=== PATIENT | male | born 1955 | race Hispanic/Latino ===

== ENCOUNTER 2019-05-30 20:43 | Inpatient (IN) | payer MEDICARE ==
[~2019-05-30] VITALS: Ht 162.6 cm; Wt 44.9 kg
[~2019-05-30 20:43] MED LIST: CIPR-278 PO; HYDR-4060 PO; HYDR5TAB8 PO; MIDO10TA PO; PANT40TA25 PO; TACR1CAP10 PO; ZOLP10TA6 PO
[2019-05-30] MEDS ORDERED: ACETAMINOPHEN EXTRA STRENGTH 500 MG TABLET ONE (21:20)
[2019-05-30] MEDS ORDERED: MEROPENEM 1 GM VIAL ONE (21:20)
[2019-05-30] MEDS ORDERED: SODIUM CHLORIDE 0.9% 1000ML 1,000 ML IV ONE (21:21)
[2019-05-30] MEDS ORDERED: ONDANSETRON HCL 4 MG/2 ML VIAL ONE (21:27)
[2019-05-30 21:31] LABS: BASOPHILS % (AUTO) 0.2 % (0.0-5.0); EOSINOPHILS % (AUTO) 0.1 % (0.0-8.0); HEMATOCRIT 45.6 % (42-54); MEAN CORPUSCULAR HEMOGLOBIN 28.5 pg (27.0-33.0); MEAN CORPUSCULAR HGB CONC 32.5 g/dL (32.0-36.0); MEAN CORPUSCULAR VOLUME 87.9 fL (79-99); MONOCYTES % (AUTO) 3.6 % (3.0-13.0); NEUTROPHILS % (AUTO) 87.6 % (40.0-77.0); PLATELET COUNT (AUTO) 261 K/uL (130-400); RED BLOOD CELL COUNT(AUTO) 5.19 MIL/uL (4.50-6.20); WHITE BLOOD COUNT (AUTO) 13.3 K/uL (4.8-10.8)
[2019-05-30 21:44] LABS: CARBON DIOXIDE 22 mmol/L (21-32); CHLORIDE 103 mmol/L (101-111); CREATININE 1.6 mg/dL (0.5-1.5); GLOMERULAR FILTR. RATE CALC 47 mL/min (>60); GLUCOSE,RANDOM 103 mg/dL (70-105); SODIUM SERUM 141 mmol/L (136-145); UREA NITROGEN, BLOOD 37 mg/dL (7-18)
[2019-05-30 21:47] LABS: INR 1.08 (0.85-1.15); PARTIAL THROMBOPLASTIN TIME 30.2 SEC (26.3-35.5); PROTHROMBIN TIME 11.3 SEC (9.6-11.6)
[2019-05-30 22:11] LABS: ALANINE AMINOTRANSFERASE 19 U/L (12-78); ALBUMIN 3.1 g/dL (3.5-5.0); ASPARTATE AMINOTRANSFERASE 17 U/L (10-37); BILIRUBIN,TOTAL 3.3 mg/dL (0.2-1.0); CREATINE KINASE, TOTAL 36 U/L (21-232); MYOGLOBIN 1115 ng/mL (10-92); TOTAL PROTEIN, SERUM 7.1 g/dL (6.0-8.3); TROPONIN I < 0.04 ng/mL (0.00-0.06)
[2019-05-30] MEDS ORDERED: MORPHINE SULFATE 4 MG/1ML SYG ONE (22:38)
[2019-05-30] MEDS ORDERED: SODIUM CHLORIDE 0.9% 500ML 500 ML IV ONE (22:48)
[2019-05-30] MEDS ORDERED: SODIUM CHLORIDE 0.9% 1000ML 1,000 ML IV SCH (22:58)
[2019-05-30 23:06] LABS: APPEARANCE,URINE TURBID (CLEAR); BILIRUBIN,URINE LARGE (NEGATIVE); COLOR,URINE YELLOW (YELLOW); GLUCOSE, URINE (UA) NEGATIVE (NEGATIVE); KETONES,URINE 5 mg/dL (NEGATIVE); LEUKOCYTE ESTERASE ,URINE LARGE (NEGATIVE); NITRATE,URINE POSITIVE (NEGATIVE); OCCULT BLOOD,URINE LARGE (NEGATIVE); PROTEIN,URINE >=300 mg/dL (NEGATIVE)
[2019-05-30 23:09] LABS: BACTERIA,URINE Many /HPF (None Seen); SQUAMOUS EPITHELIAL CELL,UR Rare /HPF (0-2); WBC,URINE 51-100 /HPF (0-1)
[2019-05-30 23:10] LABS: AMORPHOUS SEDIMENT,UR Few /LPF (None Seen)
[2019-05-31] VITALS (45 sets, daily range): BP systolic 75–156; BP diastolic 46–104
[2019-05-31] MEDS: HYDROMORPHONE 1 MG/1 ML AMP IVP PRN (01:48)
[2019-05-31 03:57] LABS: BASOPHILS % (AUTO) 0.3 % (0.0-5.0); EOSINOPHILS % (AUTO) 0.2 % (0.0-8.0); HEMATOCRIT 41.8 % (42-54); LYMPHOCYTES % (AUTO) 7.4 % (21.0-51.0); MEAN CORPUSCULAR HGB CONC 32.3 g/dL (32.0-36.0); MEAN CORPUSCULAR VOLUME 89.9 fL (79-99); MONOCYTES % (AUTO) 4.9 % (3.0-13.0); NEUTROPHILS % (AUTO) 86.8 % (40.0-77.0); PLATELET COUNT (AUTO) 183 K/uL (130-400); RED BLOOD CELL COUNT(AUTO) 4.65 MIL/uL (4.50-6.20); WHITE BLOOD COUNT (AUTO) 13.6 K/uL (4.8-10.8)
[2019-05-31] MEDS ORDERED: SODIUM CHLORIDE 0.9% 500ML 500 ML IV SCH (04:00)
[2019-05-31 04:50] LABS: CARBON DIOXIDE 22 mmol/L (21-32); CHLORIDE 106 mmol/L (101-111); CREATININE 1.8 mg/dL (0.5-1.5); GLOMERULAR FILTR. RATE CALC 41 mL/min (>60); GLUCOSE,RANDOM 86 mg/dL (70-105); POTASSIUM 4.1 mmol/L (3.5-5.1); SODIUM SERUM 143 mmol/L (136-145); UREA NITROGEN, BLOOD 40 mg/dL (7-18)
[2019-05-31 04:51] LABS: LIPASE < 50 U/L (114-286)
[2019-05-31] MEDS ORDERED: PANTOPRAZOLE SODIUM 80 MG in SODIUM CHLORIDE 0.9% 100 ML IV SCH (05:00)
--- NOTE | 2019-05-31 05:13 | NUR ---
Update on patient Spoke to AJ regarding bladder scanner at 12mL, 20cc output from suprapubic cath since arrival to floor, stated to flush cath and consult urologist in the morning. Continue NS @100. Will continue to monitor patient
[2019-05-31] MEDS: ONDANSETRON HCL 4 MG/2 ML VIAL IVP PRN (05:55)
[2019-05-31] MEDS ORDERED: OXYB5TAB15 PO (06:43)
[2019-05-31] MEDS: LACTULOSE 20 GM/30 ML UDCUP PO SCH ×2 (07:31→21:45)
[2019-05-31] MEDS: LUBIPROSTONE 24 MCG CAP PO SCH ×2 (08:00→16:11)
[2019-05-31] MEDS ORDERED: FAMOTIDINE 20MG TAB 20 MG TAB PO SCH (09:00)
[2019-05-31] MEDS: MEROPENEM 500 MG VIAL IV SCH ×3 (09:34→16:11)
[2019-05-31] MEDS: LACTATED RINGERS 1000ML IV SCH ×2 (10:13→13:11)
--- NOTE | 2019-05-31 10:18 | NUR ---
RESTING IN BED WITH EYES CLOSED, RESP.'S EVEN AND UNLABORED. O2 AT 2L/NC. O2 SAT. SPOT CHECK 100%. CALL LIGHT WITHIN REACH. FAMILY MEMBERS AT BEDSIDE.
[2019-05-31] MEDS: BISACODYL 10 MG SUPP.RECT RC SCH (10:22)
[2019-05-31] MEDS: PANTOPRAZOLE SODIUM 80 MG in SODIUM CHLORIDE 0.9% 100 ML IV NR ×2 (11:00→14:24)
[2019-05-31] MEDS: LACTATED RINGERS 1000ML 1,000 ML IV SCH ×2 (11:26→19:42)
--- NOTE | 2019-05-31 11:30 | NUR ---
INITIAL SW met with patient's spouse and son. Patient lives with spouse, Octavia Huggins. Emergency contact is son, Adam Huggins Jr, [phone]. Patient has [facility] X 2 visits a week. JAMIE/[facility] signed and placed in chart. PHC is with [facility] X 40 hours a week. DME: hospital bed, shower chair, wheelchair, nebulizer. Patient needs help with ADL's and does not drive. Family and provider assist patient daily. PCP is Dr. Cezar Huerta. Pharmacy is [facility] in [place]. DCP is home. SW spoke with family regarding considering placement but family stated they would rather take patient home with existing services. Addendum: 05/31/19 at 1135 by MARRY SAHA SS Amended: Links added.
--- NOTE | 2019-05-31 12:34 | NUR ---
NOTIFIED DR. SCHRADER RE:LACTIC ACID RESULT. ORDERS RECEIVED.
--- NOTE | 2019-05-31 12:53 | NUR ---
NOTIFIED DR. GUEVARA RE:LACTIC ACID RESULT. ORDERS RECEIVED.
[2019-05-31] MEDS ORDERED: LACTATED RINGERS 1000ML IV SCH ×2 (13:00→18:15)
--- NOTE | 2019-05-31 13:55 | NUR ---
PT. RESTING IN BED WITH EYES CLOSED. RESPONDS TO LIGHT MOVING. LETHARGIC. Addendum: 05/31/19 at 1715 by DANIEL QUAN RN RN NOTIFIED DR. GUEVARA, ORDERS RECEIVED.
[2019-05-31 13:58] LABS: POTASSIUM 4.9 mmol/L (3.5-5.1)
[2019-05-31 14:03] LABS: ALBUMIN 2.2 g/dL (3.5-5.0); BILIRUBIN,TOTAL 2.7 mg/dL (0.2-1.0); TOTAL PROTEIN, SERUM 5.4 g/dL (6.0-8.3)
[2019-05-31] MEDS: NOREPINEPHRINE 4MG/NS 250ML 250 ML IV SCH ×2 (14:10→23:17)
--- NOTE | 2019-05-31 14:17 | NUR ---
TRANSFERRED TO ROOM 217 VIA BED WITH LEVOPHED IN PLACE AT 0.1MCG/KG/MIN VIA IV PUMP. IV SITE W/O EDEMA OR ERYTHEMA NOTED. PT. IN [place] POSITION.
[2019-05-31] MEDS ORDERED: METHYLPREDNISOLONE SOD SUCC 125MG/2ML VIAL ONE (14:21)
[2019-05-31] MEDS ORDERED: DEXTROSE 50%-WATER 50 ML DISP.SYRIN IV ONE (14:22)
[2019-05-31] MEDS ORDERED: MIDAZOLAM HCL 1 MG/ML 2ML VIAL ONE (14:33)
[2019-05-31] MEDS ORDERED: FENTANYL CITRATE PF 50 MCG/1 ML 2ML VIAL ONE (14:34)
--- NOTE | 2019-05-31 15:53 | NUR ---
RECEIVED CALL FROM DR. ERWIN'S OFFICE, SPOKE WITH DENEEN, OFFICE STAFF MEMBER. ALL LABS, V.S. , CURRENT MEDICATIONS (INCLUDING LEVOPHED) REGIMEN, PT.'S HISTORY, PT.'S ABD X-RAY AND ABD CT SCAN REPORT IMPRESSIONS READ AND INFORMED OF MANUAL DISIMPACTION PERFORMED IN A.M. DENEEN STATES, "WE'LL CALL BACK WITH HER RECOMMENDATIONS."
[2019-05-31] MEDS: HYDROCORTISONE SOD SUCCINATE 100 MG/2 ML VIAL IV SCH ×2 (15:56→21:44)
[2019-05-31] MEDS ORDERED: FENTANYL CITRATE PF 50 MCG/1 ML 2ML VIAL IVP ONE (16:00)
[2019-05-31] MEDS ORDERED: GLUCAGON 1MG KIT 1 MG ML IM PRN (16:00)
[2019-05-31] MEDS ORDERED: MIDAZOLAM HCL 1 MG/ML 2ML VIAL IVP ONE (16:00)
[2019-05-31 17:26] LABS: BASOPHILS % (AUTO) 0.6 % (0.0-5.0); EOSINOPHILS % (AUTO) 0.6 % (0.0-8.0); HEMATOCRIT 42.9 % (42-54); LYMPHOCYTES % (AUTO) 1.9 % (21.0-51.0); MEAN CORPUSCULAR HGB CONC 31.5 g/dL (32.0-36.0); MEAN CORPUSCULAR VOLUME 92.1 fL (79-99); MONOCYTES % (AUTO) 10.9 % (3.0-13.0); NEUTROPHILS % (AUTO) 85.3 % (40.0-77.0); PLATELET COUNT (AUTO) 154 K/uL (130-400); RED BLOOD CELL COUNT(AUTO) 4.66 MIL/uL (4.50-6.20); RED CELL DISTRIBUTION WIDTH 18.7 % (11.0-15.5); WHITE BLOOD COUNT (AUTO) 12.4 K/uL (4.8-10.8)
[2019-05-31] MEDS ORDERED: PHARMACY COMMUNICATION MISC SCH (17:30)
[2019-05-31 18:17] LABS: MAGNESIUM 1.5 mg/dL (1.80-2.40); PHOSPHORUS 5.1 mg/dL (2.5-4.9)
[2019-05-31 18:32] LABS: BAND NEUTROPHILS % (MANUAL) 39 % (0-2); LYMPHOCYTES % (MANUAL) 5 % (22-44); MAN.DIFF COMMENT-IMPRESSION MANUAL DIFFERENTIAL; METAMYELOCYTES % 8 % (0-0); MONOCYTES % (MANUAL) 1 % (2-9); PLATELET MORPHOLOGY COMMENT ADEQUATE; SEGMENTED NEUTROPHILS % 47 % (40-70)
[2019-05-31] MEDS: DEXTROSE 50%-WATER 50 ML DISP.SYRIN IV PRN (20:12)
[2019-05-31] MEDS ORDERED: ALBUMIN (HUMAN) 25% 100 ML IV ONE (21:09)
[2019-05-31] MEDS: ALBUMIN (HUMAN) 25% 50 ML IV SCH (21:45)
[2019-06-01] VITALS (55 sets, daily range): BP systolic 72–143; BP diastolic 42–86
[2019-06-01] MEDS: MEROPENEM 500 MG VIAL IV SCH ×4 (00:25→23:43)
[2019-06-01] MEDS: DEXTROSE 50%-WATER 50 ML DISP.SYRIN IV PRN (00:25)
[2019-06-01] MEDS: LACTATED RINGERS 1000ML 1,000 ML IV SCH (01:09)
[2019-06-01] MEDS: HYDROCORTISONE SOD SUCCINATE 100 MG/2 ML VIAL IV SCH ×4 (01:09→20:41)
[2019-06-01] MEDS: PANTOPRAZOLE SODIUM 80 MG in SODIUM CHLORIDE 0.9% 100 ML IV NR (01:10)
[2019-06-01] MEDS: HYDROMORPHONE 1 MG/1 ML AMP IVP PRN ×2 (01:10→23:44)
[2019-06-01 03:37] LABS: BASOPHILS % (AUTO) 0.3 % (0.0-5.0); EOSINOPHILS % (AUTO) 0.7 % (0.0-8.0); HEMATOCRIT 33.9 % (42-54); LYMPHOCYTES % (AUTO) 1.1 % (21.0-51.0); MEAN CORPUSCULAR HEMOGLOBIN 28.6 pg (27.0-33.0); MEAN CORPUSCULAR HGB CONC 32.4 g/dL (32.0-36.0); MEAN CORPUSCULAR VOLUME 88.3 fL (79-99); MONOCYTES % (AUTO) 3.3 % (3.0-13.0); NEUTROPHILS % (AUTO) 92.9 % (40.0-77.0); PLATELET COUNT (AUTO) 174 K/uL (130-400); RED BLOOD CELL COUNT(AUTO) 3.84 MIL/uL (4.50-6.20); RED CELL DISTRIBUTION WIDTH 18.4 % (11.0-15.5); WHITE BLOOD COUNT (AUTO) 18.7 K/uL (4.8-10.8)
[2019-06-01 03:55] LABS: CREATININE 1.9 mg/dL (0.5-1.5); MAGNESIUM 1.4 mg/dL (1.80-2.40); PHOSPHORUS 4.5 mg/dL (2.5-4.9); POTASSIUM 3.5 mmol/L (3.5-5.1)
[2019-06-01] MEDS: MAGNESIUM 2GM PREMIX 50ML 50 ML IV SCH (07:30)
[2019-06-01] MEDS: BISACODYL 10 MG SUPP.RECT RC SCH (08:45)
[2019-06-01] MEDS: LACTULOSE 20 GM/30 ML UDCUP PO SCH ×2 (08:46→20:41)
[2019-06-01] MEDS: PANTOPRAZOLE 40 MG/VIAL IVP SCH ×2 (09:17→20:41)
[2019-06-01] MEDS: LUBIPROSTONE 24 MCG CAP PO SCH ×2 (09:17→17:00)
[2019-06-01] MEDS: ALBUMIN (HUMAN) 25% 50 ML IV SCH ×2 (09:17→20:40)
[2019-06-01] MEDS: ONDANSETRON HCL 4 MG/2 ML VIAL IVP PRN ×2 (09:26→20:41)
[2019-06-01 13:46] LABS: CREATININE 1.7 mg/dL (0.5-1.5)
[2019-06-01] MEDS ORDERED: LIDOCAINE HCL-MPF 1% 2ML VIAL IV PRN (14:00)
[2019-06-01] MEDS: POTASSIUM CHLORIDE 20MEQ/100ML 100 ML IV PRN ×2 (14:32→15:32)
--- NOTE | 2019-06-01 15:03 | NUR ---
1453 gave patient's son BPCI Letter, notified him that JUDY Franks Coordinator will be following up with patient within the next 90 days.
--- NOTE | 2019-06-01 15:55 | NUR ---
[facility] CONSULT PATIENT ASSESSED REQUESTED: PER FLOOR NURSE, NO OPEN WOUNDS OR SKIN BREAKDOWN PRESENT. NO [facility] RECOMMENDATIONS REQUIRED AT THIS TIME. Addendum: 06/03/19 at 1028 by JOSE PATEL LVN Amended: Links added.
[2019-06-01] MEDS: DEXTROSE 5%-LACTATED RINGERS 1,000 ML IV SCH (18:03)
[2019-06-02] VITALS (30 sets, daily range): BP systolic 97–136; BP diastolic 63–88
[2019-06-02] MEDS: HYDROCORTISONE SOD SUCCINATE 100 MG/2 ML VIAL IV SCH ×4 (02:21→21:12)
[2019-06-02 04:25] LABS: BASOPHILS % (AUTO) 0.2 % (0.0-5.0); EOSINOPHILS % (AUTO) 0.5 % (0.0-8.0); HEMATOCRIT 30.1 % (42-54); LYMPHOCYTES % (AUTO) 1.6 % (21.0-51.0); MEAN CORPUSCULAR HEMOGLOBIN 28.8 pg (27.0-33.0); MEAN CORPUSCULAR HGB CONC 32.9 g/dL (32.0-36.0); MEAN CORPUSCULAR VOLUME 87.5 fL (79-99); MONOCYTES % (AUTO) 3.5 % (3.0-13.0); NEUTROPHILS % (AUTO) 90.8 % (40.0-77.0); PLATELET COUNT (AUTO) 119 K/uL (130-400); RED BLOOD CELL COUNT(AUTO) 3.44 MIL/uL (4.50-6.20); RED CELL DISTRIBUTION WIDTH 18.2 % (11.0-15.5); WHITE BLOOD COUNT (AUTO) 12.8 K/uL (4.8-10.8)
[2019-06-02 04:43] LABS: ALBUMIN 2.5 g/dL (3.5-5.0); CREATININE 1.5 mg/dL (0.5-1.5); MAGNESIUM 2.3 mg/dL (1.80-2.40); PHOSPHORUS 3.8 mg/dL (2.5-4.9)
[2019-06-02 05:01] LABS: POTASSIUM 2.9 mmol/L (3.5-5.1)
[2019-06-02] MEDS: POTASSIUM CHLORIDE 20MEQ/100ML 100 ML IV PRN ×2 (05:23→10:12)
[2019-06-02] MEDS: LUBIPROSTONE 24 MCG CAP PO SCH ×2 (08:00→14:49)
[2019-06-02] MEDS: PANTOPRAZOLE 40 MG/VIAL IVP SCH ×2 (08:29→21:12)
[2019-06-02] MEDS: DEXTROSE 5%-LACTATED RINGERS 1,000 ML IV SCH (08:29)
[2019-06-02] MEDS: MEROPENEM 500 MG VIAL IV SCH ×2 (08:29→16:38)
[2019-06-02] MEDS: BISACODYL 10 MG SUPP.RECT RC SCH (08:35)
[2019-06-02] MEDS: LACTULOSE 20 GM/30 ML UDCUP PO SCH (08:35)
--- NOTE | 2019-06-02 08:36 | NUR ---
Held Medications Patient has had multiple Large liquid BM's X3.
--- NOTE | 2019-06-02 10:00 | NUR ---
No GI intervention at this time. Colonoscopy done in 2018 showed internal Hemorrhoids. No intervention to be done at this time. -As per Dr. Gee
[2019-06-02] MEDS: ONDANSETRON HCL 4 MG/2 ML VIAL IVP PRN ×2 (11:33→21:12)
[2019-06-02 15:40] LABS: HEMATOCRIT 31.6 % (42-54)
[2019-06-02] MEDS ORDERED: PHARMACY COMMUNICATION MISC SCH (15:45)
[2019-06-02] MEDS ORDERED: ZINC OXIDE OINT 56.7 GM TP PRN (16:00)
[2019-06-02] MEDS: D5LR-20 MEQ KCL 1000 ML 1,000 ML IV SCH (21:11)
[2019-06-02] MEDS: HYDROMORPHONE 1 MG/1 ML AMP IVP PRN (21:13)
[2019-06-03] VITALS (14 sets, daily range): BP systolic 117–141; BP diastolic 77–97
[2019-06-03] MEDS: MEROPENEM 500 MG VIAL IV SCH ×3 (00:24→18:04)
[2019-06-03 04:44] LABS: BASOPHILS % (AUTO) 0.1 % (0.0-5.0); HEMATOCRIT 31.7 % (42-54); LYMPHOCYTES % (AUTO) 2.3 % (21.0-51.0); MEAN CORPUSCULAR HEMOGLOBIN 28.7 pg (27.0-33.0); MEAN CORPUSCULAR HGB CONC 33.1 g/dL (32.0-36.0); MEAN CORPUSCULAR VOLUME 86.6 fL (79-99); MONOCYTES % (AUTO) 2.4 % (3.0-13.0); NEUTROPHILS % (AUTO) 94.9 % (40.0-77.0); PLATELET COUNT (AUTO) 93 K/uL (130-400); RED BLOOD CELL COUNT(AUTO) 3.66 MIL/uL (4.50-6.20); WHITE BLOOD COUNT (AUTO) 14.6 K/uL (4.8-10.8)
[2019-06-03 04:53] LABS: CREATININE 1.2 mg/dL (0.5-1.5)
[2019-06-03 04:55] LABS: POTASSIUM 2.9 mmol/L (3.5-5.1)
[2019-06-03] MEDS: HYDROCORTISONE SOD SUCCINATE 100 MG/2 ML VIAL IV SCH ×3 (05:16→21:59)
[2019-06-03] MEDS: POTASSIUM CHLORIDE 20MEQ/100ML 100 ML IV PRN ×2 (05:16→09:13)
[2019-06-03] MEDS ORDERED: POTASSIUM CHLORIDE 10% ELIXIR 20 MEQ/15 ML UDCUP PO PRN (06:45)
[2019-06-03] MEDS: LUBIPROSTONE 24 MCG CAP PO SCH ×2 (08:00→17:00)
[2019-06-03] MEDS: MAGNESIUM 2GM PREMIX 50ML 50 ML IV SCH (09:27)
[2019-06-03] MEDS: ONDANSETRON HCL 4 MG/2 ML VIAL IVP PRN (10:33)
--- NOTE | 2019-06-03 11:56 | NUR ---
AFTER KCL IV PROTOCOL---RE CHECKED POTASSIUM LEVEL 3.8
--- NOTE | 2019-06-03 14:10 | NUR ---
CALLED DR. FARRAR'S OFFICE ([phone]) AND SPOKE WITH DENEEN...REQUESTED THAT DR. FARRAR CALL ME BACK IN REFERENCE TO ORDER WRITTEN TO CHANGE OUT SUPRA PUBIC CATHETER.
[2019-06-03] MEDS: D5LR-20 MEQ KCL 1000 ML 1,000 ML IV SCH (15:24)
--- NOTE | 2019-06-03 16:15 | NUR ---
SUPRAPUBIC CATHETER CHANGED BY ALVIN GOODMAN @BEDSIDE.
--- NOTE | 2019-06-03 23:06 | NUR ---
Assumed care at 1900. Patient in stable condition and in no apparent distress. No complaints of pain. VS WNL. Patient has been transferred at this time to Rm 224. Report given to Latosha ESQUIVEL.
[2019-06-04] VITALS (7 sets, daily range): BP systolic 118–135; BP diastolic 81–90
[2019-06-04] MEDS: MEROPENEM 500 MG VIAL IV SCH ×3 (02:01→15:00)
[2019-06-04 04:19] LABS: BASOPHILS % (AUTO) 0.1 % (0.0-5.0); HEMATOCRIT 34.7 % (42-54); LYMPHOCYTES % (AUTO) 4.6 % (21.0-51.0); MEAN CORPUSCULAR HEMOGLOBIN 28.7 pg (27.0-33.0); MEAN CORPUSCULAR HGB CONC 33.7 g/dL (32.0-36.0); MEAN CORPUSCULAR VOLUME 85.3 fL (79-99); MONOCYTES % (AUTO) 3.9 % (3.0-13.0); PLATELET COUNT (AUTO) 63 K/uL (130-400); RED BLOOD CELL COUNT(AUTO) 4.07 MIL/uL (4.50-6.20); RED CELL DISTRIBUTION WIDTH 17.5 % (11.0-15.5); WHITE BLOOD COUNT (AUTO) 11.2 K/uL (4.8-10.8)
[2019-06-04 04:21] LABS: CREATININE 1.1 mg/dL (0.5-1.5); MAGNESIUM 1.7 mg/dL (1.80-2.40); PHOSPHORUS 2.1 mg/dL (2.5-4.9); POTASSIUM 3.1 mmol/L (3.5-5.1)
[2019-06-04] MEDS: MAGNESIUM 2GM PREMIX 50ML 50 ML IV SCH (06:44)
[2019-06-04] MEDS: HYDROCORTISONE SOD SUCCINATE 100 MG/2 ML VIAL IV SCH ×3 (06:44→21:24)
[2019-06-04] MEDS: D5LR-20 MEQ KCL 1000 ML 1,000 ML IV SCH ×2 (08:01→17:58)
[2019-06-04] MEDS: TACROLIMUS 1 MG CAPSULE PO SCH ×3 (08:07→21:24)
[2019-06-04] MEDS: PANTOPRAZOLE 40 MG/VIAL IVP SCH (08:07)
[2019-06-04] MEDS: POTASSIUM CHLORIDE 10% ELIXIR 20 MEQ/15 ML UDCUP PO PRN (08:12)
[2019-06-04] MEDS: HYDROMORPHONE 1 MG/1 ML AMP IVP PRN (08:12)
--- NOTE | 2019-06-04 08:16 | NUR ---
DR. GUEVARA IN ROOM ASSESSING AND SPEAKING WITH PT. DR. GUEVARA EXPLAINED PLAN OF CARE TO PT. AND FAMILY MEMBERS AT BEDSIDE, VERBALIZED MUTUAL UNDERSTANDING.
[2019-06-04] MEDS ORDERED: POTASSIUM PHOS 15 mMOL+NS250ML 250 ML IV PRN (08:30)
[2019-06-04] MEDS: POTASSIUM CHLORIDE 20MEQ/100ML 100 ML IV PRN (10:51)
--- NOTE | 2019-06-04 13:45 | NUR ---
BM NOTED, CARE RENDERED AND REPOSITIONED. Addendum: 06/04/19 at 1846 by DANIEL QUAN RN RN "TOTAL CARE SPO(2)RT" AIR BED IN PLACE.
[2019-06-04 14:28] LABS: POTASSIUM 3.8 mmol/L (3.5-5.1)
--- NOTE | 2019-06-04 17:10 | NUR ---
BM NOTED, CARE RENDERED AND REPOSITIONED.
--- NOTE | 2019-06-04 19:12 | NUR ---
DR. Ruth PETTY IN ROOM ASSESSING/SPEAKING WITH PT.
[2019-06-04] MEDS: ONDANSETRON HCL 4 MG/2 ML VIAL IVP PRN (22:52)
--- NOTE | 2019-06-05 01:00 | NUR ---
IJ DRESSING CHANGE LEFT IJ CVL DRESSING CHANGE DONE AT THIS TIME USING STERILE TECHNIQUE. PT TOLERATED WELL.
[2019-06-05] MEDS: MEROPENEM 500 MG VIAL IV SCH ×3 (01:39→20:25)
[2019-06-05] MEDS ORDERED: ZOLPIDEM TARTRATE 5 MG TAB PO ONE (02:00)
[2019-06-05 04:33] VITALS: BP 125/83
[2019-06-05] MEDS: HYDROCORTISONE SOD SUCCINATE 100 MG/2 ML VIAL IV SCH ×3 (05:44→20:25)
[2019-06-05 08:05] VITALS: BP 135/78
[2019-06-05] MEDS: TACROLIMUS 1 MG CAPSULE PO SCH ×2 (09:00→20:27)
[2019-06-05] MEDS: PANTOPRAZOLE 40 MG/VIAL IVP SCH (09:00)
[2019-06-05] MEDS: D5LR-20 MEQ KCL 1000 ML 1,000 ML IV SCH (11:25)
[2019-06-05 11:42] VITALS: BP 139/93
[2019-06-05 16:31] VITALS: BP 135/95
--- NOTE | 2019-06-05 17:30 | NUR ---
LT I.J. CENTRAL LINE , EDUCATION GIVEN , INSTRUCTED PT TO TAKE A DEEP BREATH HOLD AND CENTRAL LINE, DISCHARGE ,WITH IMMEDICATED PRESSURE X 10 MIN DONE NOTED NO HEMATOMA OR REDNESS . NOTED NO SOB. A SM PRESSURE DRSG APPLICATION ON TOLERATE WELL , SL TO HIS RT FOREARM HURTING AND DC , SM PRESSURE DRSG APPLICATION ON . .
[2019-06-05] MEDS: ONDANSETRON HCL 4 MG/2 ML VIAL IVP PRN (20:25)
[2019-06-05] MEDS: HYDROMORPHONE 1 MG/1 ML AMP IVP PRN (20:27)
[2019-06-05 20:36] VITALS: BP 144/89
[2019-06-06] MEDS ORDERED: ZOLPIDEM TARTRATE 5 MG TAB PO ONE ×2 (00:15→22:30)
[2019-06-06] MEDS ORDERED: ZOLPIDEM TARTRATE 5 MG TAB ONE (00:41)
[2019-06-06 01:09] VITALS: BP 145/90
[2019-06-06 03:57] VITALS: BP 138/97
[2019-06-06] MEDS: HYDROCORTISONE SOD SUCCINATE 100 MG/2 ML VIAL IV SCH ×2 (07:09→18:04)
[2019-06-06] MEDS: D5LR-20 MEQ KCL 1000 ML 1,000 ML IV SCH (07:55)
[2019-06-06] MEDS: MEROPENEM 500 MG VIAL IV SCH ×2 (07:58)
[2019-06-06] MEDS: TACROLIMUS 1 MG CAPSULE PO SCH ×2 (07:58→23:50)
[2019-06-06] MEDS: PANTOPRAZOLE 40 MG/VIAL IVP SCH (07:59)
[2019-06-06 08:00] VITALS: BP 148/93
[2019-06-06 08:41] LABS: BASOPHILS % (AUTO) 0.1 % (0.0-5.0); EOSINOPHILS % (AUTO) 0.1 % (0.0-8.0); HEMATOCRIT 37.5 % (42-54); LYMPHOCYTES % (AUTO) 9.6 % (21.0-51.0); MEAN CORPUSCULAR HEMOGLOBIN 28.7 pg (27.0-33.0); MEAN CORPUSCULAR HGB CONC 33.9 g/dL (32.0-36.0); MEAN CORPUSCULAR VOLUME 84.7 fL (79-99); MONOCYTES % (AUTO) 7.8 % (3.0-13.0); NEUTROPHILS % (AUTO) 81.4 % (40.0-77.0); PLATELET COUNT (AUTO) 70 K/uL (130-400); RED BLOOD CELL COUNT(AUTO) 4.43 MIL/uL (4.50-6.20); RED CELL DISTRIBUTION WIDTH 16.2 % (11.0-15.5); WHITE BLOOD COUNT (AUTO) 7.9 K/uL (4.8-10.8)
[2019-06-06 08:51] LABS: CREATININE 0.9 mg/dL (0.5-1.5); MAGNESIUM 1.4 mg/dL (1.80-2.40)
[2019-06-06 09:01] LABS: POTASSIUM 2.7 mmol/L (3.5-5.1)
[2019-06-06] MEDS: POTASSIUM CHLORIDE 20MEQ/100ML 100 ML IV PRN (10:19)
[2019-06-06] MEDS: POTASSIUM CHLORIDE 20 MEQ ERTAB PO PRN ×2 (10:19→18:05)
[2019-06-06] MEDS: LIDOCAINE HCL-MPF 1% 2ML VIAL IV PRN (10:39)
--- NOTE | 2019-06-06 10:40 | NUR ---
DYSPHAGIA EVAL COMPLETED. -S/S OF ASPIRATION. RECOMMEND REGULAR TEXTURE, THIN LIQUIDS; PILLS CRUSHED IF LARGE. Addendum: 06/06/19 at 1355 by [place]O [place], [facility] Amended: Links added.
[2019-06-06 12:00] VITALS: BP 155/97
[2019-06-06 15:24] VITALS: BP 151/91
--- NOTE | 2019-06-06 15:46 | NUR ---
RD NOTIFICATION DIET: GI SOFT/BLAND. PO INTAKE <25% AND HAS POOR APPETITE X SEVERAL WEEKS, PER FAMILY. NO COMPLAINTS OF N/V/C/D AT THIS TIME. PT STATED HAVING NO DIFFICULTIES CHEWING OR SWALLOWING FOOD/ LIQUIDS AT THIS TIME. LABS REVIEWED. MEDS REVIEWED. SKIN IS INTACT, COCCYX HEALED ULCER NOTED. PT STATED HE LIKES FRESH FRUIT SUCH PEACHES, PEARS AND BANANAS. BMI IS 17; CLASSIFIED SEVERE UNDERWEIGHT. NO SIGNIFICANT WEIGHT CHANGES WERE NOTED. RD RECOMMENDS TO OFFER ENSURE WITH ALL MEALS OFFER FRESH FRUIT TO HIS LIKING ENCOURAGE ADEQUATE NUTRITION AND HYDRATION DAILY ASSISTED FEEDINGS NEEDED RD PENDING MALNUTRITION EDUCATION AT THIS TIME MONITOR PO INTAKE AND WEIGHT Addendum: 06/06/19 at [address] Amended: Links added.
[2019-06-06] MEDS: CEFTRIAXONE SODIUM 1 GM IV SCH (18:04)
[2019-06-06 19:54] VITALS: BP 134/93
[2019-06-06] MEDS: ACETAMINOPHEN 325 MG TAB PO PRN (23:51)
[2019-06-07] MEDS ORDERED: ZOLPIDEM TARTRATE 5 MG TAB ONE (00:17)
[2019-06-07] MEDS: POTASSIUM CHLORIDE 10% ELIXIR 20 MEQ/15 ML UDCUP PO PRN ×4 (00:20→18:38)
[2019-06-07 00:51] VITALS: BP 142/94
--- NOTE | 2019-06-07 02:44 | NUR ---
ASSUMED CARE Report from tiarra rn.
[2019-06-07] MEDS: D5LR-20 MEQ KCL 1000 ML 1,000 ML IV SCH (03:00)
--- NOTE | 2019-06-07 03:24 | NUR ---
BM Pt had a bowel movement,incontinent care rendered.
[2019-06-07] MEDS: MAGNESIUM 2GM PREMIX 50ML 50 ML IV SCH ×2 (03:34→07:29)
[2019-06-07 03:55] VITALS: BP 135/83
[2019-06-07 05:36] LABS: BASOPHILS % (AUTO) 0.1 % (0.0-5.0); EOSINOPHILS % (AUTO) 0.1 % (0.0-8.0); HEMATOCRIT 35.7 % (42-54); LYMPHOCYTES % (AUTO) 18.9 % (21.0-51.0); MEAN CORPUSCULAR HGB CONC 33.1 g/dL (32.0-36.0); MEAN CORPUSCULAR VOLUME 84.8 fL (79-99); MONOCYTES % (AUTO) 6.5 % (3.0-13.0); NEUTROPHILS % (AUTO) 72.2 % (40.0-77.0); PLATELET COUNT (AUTO) 46 K/uL (130-400); RED BLOOD CELL COUNT(AUTO) 4.21 MIL/uL (4.50-6.20); RED CELL DISTRIBUTION WIDTH 16.2 % (11.0-15.5); WHITE BLOOD COUNT (AUTO) 6.8 K/uL (4.8-10.8)
[2019-06-07 05:46] LABS: CREATININE 0.8 mg/dL (0.5-1.5); MAGNESIUM 1.2 mg/dL (1.80-2.40); POTASSIUM 3.3 mmol/L (3.5-5.1)
[2019-06-07] MEDS: ACETAMINOPHEN 325 MG TAB PO PRN ×2 (05:55→22:21)
[2019-06-07 08:00] VITALS: BP 133/81
[2019-06-07] MEDS: TACROLIMUS 1 MG CAPSULE PO SCH ×2 (08:42→20:39)
[2019-06-07] MEDS: HYDROCORTISONE 20 MG TABLET PO SCH ×2 (08:42→20:39)
[2019-06-07] MEDS: PANTOPRAZOLE 40 MG/VIAL IVP SCH (08:43)
[2019-06-07 12:00] VITALS: BP 123/75
[2019-06-07 16:00] VITALS: BP 128/77
[2019-06-07] MEDS: CEFTRIAXONE SODIUM 1 GM IV SCH (17:02)
[2019-06-07 21:23] VITALS: BP 134/84
[2019-06-08 00:49] VITALS: BP 138/78
[2019-06-08] MEDS: D5LR-20 MEQ KCL 1000 ML 1,000 ML IV SCH (01:30)
[2019-06-08] MEDS ORDERED: ZOLPIDEM TARTRATE 5 MG TAB PO ONE (02:00)
[2019-06-08] MEDS ORDERED: ZOLPIDEM TARTRATE 5 MG TAB ONE (02:19)
[2019-06-08 04:14] VITALS: BP 141/91
[2019-06-08 06:27] LABS: BASOPHILS % (AUTO) 0.3 % (0.0-5.0); EOSINOPHILS % (AUTO) 0.4 % (0.0-8.0); HEMATOCRIT 37.6 % (42-54); LYMPHOCYTES % (AUTO) 13.8 % (21.0-51.0); MEAN CORPUSCULAR HEMOGLOBIN 28.4 pg (27.0-33.0); MEAN CORPUSCULAR HGB CONC 31.9 g/dL (32.0-36.0); MEAN CORPUSCULAR VOLUME 89.1 fL (79-99); MONOCYTES % (AUTO) 3.7 % (3.0-13.0); NEUTROPHILS % (AUTO) 80.5 % (40.0-77.0); PLATELET COUNT (AUTO) 95 K/uL (130-400); RED BLOOD CELL COUNT(AUTO) 4.22 MIL/uL (4.50-6.20); RED CELL DISTRIBUTION WIDTH 16.7 % (11.0-15.5); WHITE BLOOD COUNT (AUTO) 7.8 K/uL (4.8-10.8)
[2019-06-08 06:29] LABS: CREATININE 0.7 mg/dL (0.5-1.5); MAGNESIUM 1.8 mg/dL (1.80-2.40); POTASSIUM 3.7 mmol/L (3.5-5.1)
[2019-06-08 08:00] VITALS: BP 135/85
[2019-06-08] MEDS: TACROLIMUS 1 MG CAPSULE PO SCH ×2 (10:39→21:17)
[2019-06-08] MEDS: PANTOPRAZOLE 40 MG/VIAL IVP SCH (10:40)
[2019-06-08] MEDS: HYDROCORTISONE 20 MG TABLET PO SCH ×2 (10:40→21:17)
[2019-06-08] MEDS: POTASSIUM CHLORIDE 20 MEQ ERTAB PO PRN (10:41)
[2019-06-08 12:00] VITALS: BP 151/87
[2019-06-08 16:00] VITALS: BP 136/80
[2019-06-08] MEDS: CEFTRIAXONE SODIUM 1 GM IV SCH (17:06)
[2019-06-08] MEDS: ACETAMINOPHEN 325 MG TAB PO PRN (17:09)
[2019-06-08] MEDS ORDERED: HEPARIN SODIUM 5000UNIT/ML 1ML VIAL SQ SCH (18:30)
[2019-06-08 20:00] VITALS: BP 134/84
[2019-06-08] MEDS: HYDROMORPHONE 1 MG/1 ML AMP IVP PRN (21:17)
[2019-06-08] MEDS ORDERED: BISACODYL 5 MG TABLET.DR PO PRN (22:45)
[2019-06-09] VITALS (7 sets, daily range): BP systolic 134–151; BP diastolic 81–96
[2019-06-09 05:14] LABS: BASOPHILS % (AUTO) 0.1 % (0.0-5.0); HEMATOCRIT 34.1 % (42-54); MEAN CORPUSCULAR HEMOGLOBIN 28.4 pg (27.0-33.0); MEAN CORPUSCULAR HGB CONC 32.8 g/dL (32.0-36.0); MEAN CORPUSCULAR VOLUME 86.3 fL (79-99); MONOCYTES % (AUTO) 2.9 % (3.0-13.0); PLATELET COUNT (AUTO) 140 K/uL (130-400); RED BLOOD CELL COUNT(AUTO) 3.95 MIL/uL (4.50-6.20); RED CELL DISTRIBUTION WIDTH 16.3 % (11.0-15.5); WHITE BLOOD COUNT (AUTO) 10.5 K/uL (4.8-10.8)
[2019-06-09 05:28] LABS: CREATININE 0.6 mg/dL (0.5-1.5); MAGNESIUM 1.4 mg/dL (1.80-2.40); POTASSIUM 3.3 mmol/L (3.5-5.1)
[2019-06-09] MEDS ORDERED: POTASSIUM CHLORIDE 20 MEQ ERTAB PO ONE (06:15)
[2019-06-09] MEDS: MAGNESIUM 2GM PREMIX 50ML 50 ML IV SCH (07:32)
[2019-06-09] MEDS: MAGNESIUM OXIDE 400 MG TABLET PO SCH (09:00)
[2019-06-09] MEDS: PANTOPRAZOLE 40 MG/VIAL IVP SCH (09:00)
[2019-06-09] MEDS ORDERED: LORAZEPAM 0.5 MG TABLET PO ONE (10:00)
[2019-06-09 10:13] LABS: POTASSIUM 3.5 mmol/L (3.5-5.1)
[2019-06-09] MEDS: TACROLIMUS 1 MG CAPSULE PO SCH ×2 (12:25→19:32)
[2019-06-09] MEDS: HYDROCORTISONE 20 MG TABLET PO SCH ×2 (12:26→19:33)
[2019-06-09 13:22] LABS: CREATININE 0.8 mg/dL (0.5-1.5); POTASSIUM 3.6 mmol/L (3.5-5.1)
--- NOTE | 2019-06-09 16:12 | NUR ---
CM NOTE PER DR. LIRIANO, ANTICIPATED DISCHARGE IN THE NEXT 24 TO 48HRS. PER PRIMARY MD, OK TO RETURN TO ONCE DISCHARGED FROM HOSPITAL. CURRENTLY PATIENT OF [facility]. PER , OK FOR PATIENT TO RETURN ONCE DISCHARGED BUT WILL NEED CLINICALS. JAMIE SIGNED PREVIOUSLY FOR , CLINICALS AND UPDATES FAXED AND RECEIVED AT . EMS FORM FILLED OUT, PENDING DATE OF DISCHARGE. WILL FOLLOW UP ACCORDINGLY.
[2019-06-09] MEDS: ASPIRIN 81MG TAB.CHEW PO SCH (17:02)
[2019-06-09] MEDS: CEFTRIAXONE SODIUM 1 GM IV SCH (17:03)
[2019-06-09] MEDS: ACETAMINOPHEN 325 MG TAB PO PRN (23:52)
[2019-06-09] MEDS ORDERED: ZOLPIDEM TARTRATE 5 MG TAB ONE (23:58)
[2019-06-10] MEDS ORDERED: ZOLPIDEM TARTRATE 5 MG TAB PO ONE
[2019-06-10 03:00] VITALS: BP 133/81
[2019-06-10 06:38] LABS: BASOPHILS % (AUTO) 0.1 % (0.0-5.0); EOSINOPHILS % (AUTO) 0.2 % (0.0-8.0); HEMATOCRIT 34.9 % (42-54); LYMPHOCYTES % (AUTO) 14.2 % (21.0-51.0); MEAN CORPUSCULAR HEMOGLOBIN 28.3 pg (27.0-33.0); MEAN CORPUSCULAR HGB CONC 32.4 g/dL (32.0-36.0); MEAN CORPUSCULAR VOLUME 87.5 fL (79-99); MONOCYTES % (AUTO) 5.5 % (3.0-13.0); NEUTROPHILS % (AUTO) 79.3 % (40.0-77.0); PLATELET COUNT (AUTO) 195 K/uL (130-400); RED BLOOD CELL COUNT(AUTO) 3.99 MIL/uL (4.50-6.20); RED CELL DISTRIBUTION WIDTH 16.3 % (11.0-15.5); WHITE BLOOD COUNT (AUTO) 9.2 K/uL (4.8-10.8)
[2019-06-10 07:48] VITALS: BP_SYST 148; BP_SYST 190; BP_DIAS 80; BP_DIAS 89
--- NOTE | 2019-06-10 08:00 | NUR ---
AM SHIFT ASSESSMENT, HEAD OF BED UP, 02 PER NC, ON PSYCHIATRIC NURSE PRACTITIONER,
[2019-06-10] MEDS: PANTOPRAZOLE 40 MG/VIAL IVP SCH (08:51)
[2019-06-10] MEDS: MAGNESIUM OXIDE 400 MG TABLET PO SCH (08:51)
[2019-06-10] MEDS: ASPIRIN 81MG TAB.CHEW PO SCH (08:51)
[2019-06-10] MEDS: HYDROCORTISONE 20 MG TABLET PO SCH ×2 (08:52→19:35)
[2019-06-10] MEDS: TACROLIMUS 1 MG CAPSULE PO SCH ×2 (08:52→19:36)
--- NOTE | 2019-06-10 10:13 | NUR ---
Dr. Solitario in room, discussed his recommendations as follows: 1.) CT head dx lle weakness 2.) Cervical Spine CT, if positive for stenosis, consult neurosurgeon 3.) If okay with pt and family, begin keppra 500 po bid 4.) teleneurology available if needed Pt and family member in room both refused keppra, but agreed with rest of plan. Orders entered.
[2019-06-10 12:00] VITALS: BP 132/78
--- NOTE | 2019-06-10 12:44 | NUR ---
Nutrition Follow-up: Pt. on GI Soft [place] diet, [place] Ensure TID. Pt. reports poor p.o. intake due to has no appetite. Pt. states is drinking~50% of Ensure supp. Pt. states gets tired chewing but declined change in diet texture. Pt. requesting an appetite stimulant. Labs reviewed(Alb 2.5). SR-16, coccyx ulcer. Pt. with 1+ edema to LUE. LBM: 06/09/2019. Recommendations: 1) Continue current diet and Ensure supplement. 2) Rec. appetite stimulant- Megace. 3) Continue to monitor pt's nutritional status. 4) Consult RD as nutrition concerns arise. Addendum: 06/10/19 at [address] Amended: Links added.
[2019-06-10 16:00] VITALS: BP 138/77
[2019-06-10] MEDS: CEFTRIAXONE SODIUM 1 GM IV SCH (17:28)
--- NOTE | 2019-06-10 18:00 | NUR ---
LOOKS BETTER THIS AFTERNOON, BREATING EASIER AND LOOKS STRONGER. FAMILY IN ROOM AND ASST. WITH CARE. PT. VERY PLEASANT AND CO OPERATIVE.
[2019-06-10 20:57] VITALS: BP 160/93
[2019-06-10 21:34] LABS: ABG BASE EXCESS 0.5 mmol/L (-2.0-3.0); ABG HCO3 23.4 mmol/L (21.0-28.0); ABG OXYGEN SATURATION 95.6 % (95.0-99.0); ABG PCO2 33 mmHg (35-48)
[2019-06-11] MEDS: ZOLPIDEM TARTRATE 5 MG TAB PO PRN ×2 (01:08→22:33)
[2019-06-11 01:14] VITALS: BP 136/80
[2019-06-11 04:19] VITALS: BP 135/85
[2019-06-11 06:08] LABS: EOSINOPHILS % (AUTO) 0.1 % (0.0-8.0); HEMATOCRIT 33.7 % (42-54); LYMPHOCYTES % (AUTO) 16.8 % (21.0-51.0); MEAN CORPUSCULAR HEMOGLOBIN 28.9 pg (27.0-33.0); MEAN CORPUSCULAR HGB CONC 33.2 g/dL (32.0-36.0); MEAN CORPUSCULAR VOLUME 87.1 fL (79-99); MONOCYTES % (AUTO) 7.7 % (3.0-13.0); NEUTROPHILS % (AUTO) 74.7 % (40.0-77.0); PLATELET COUNT (AUTO) 225 K/uL (130-400); RED BLOOD CELL COUNT(AUTO) 3.87 MIL/uL (4.50-6.20); RED CELL DISTRIBUTION WIDTH 16.3 % (11.0-15.5); WHITE BLOOD COUNT (AUTO) 7.7 K/uL (4.8-10.8)
[2019-06-11 06:20] LABS: CREATININE 0.8 mg/dL (0.5-1.5)
[2019-06-11 06:24] LABS: POTASSIUM 2.7 mmol/L (3.5-5.1)
[2019-06-11] MEDS: POTASSIUM CHLORIDE 20MEQ/100ML 100 ML IV PRN ×2 (06:35→10:40)
[2019-06-11] MEDS: LIDOCAINE HCL-MPF 1% 2ML VIAL IV PRN (06:35)
[2019-06-11] MEDS: POTASSIUM CHLORIDE 20 MEQ ERTAB PO PRN ×4 (06:36→16:55)
[2019-06-11 08:00] VITALS: BP 143/92
[2019-06-11] MEDS: HYDROCORTISONE 20 MG TABLET PO SCH ×2 (08:49→19:39)
[2019-06-11] MEDS: MAGNESIUM OXIDE 400 MG TABLET PO SCH (08:49)
[2019-06-11] MEDS: ASPIRIN 81MG TAB.CHEW PO SCH (08:50)
[2019-06-11] MEDS: TACROLIMUS 1 MG CAPSULE PO SCH ×2 (08:50→19:39)
[2019-06-11] MEDS: PANTOPRAZOLE 40 MG/VIAL IVP SCH (08:51)
[2019-06-11] MEDS: HEPARIN SODIUM 5000UNIT/ML 1ML VIAL SQ SCH (08:58)
[2019-06-11 12:00] VITALS: BP 145/88
[2019-06-11 16:00] VITALS: BP 143/90
[2019-06-11] MEDS: CEFTRIAXONE SODIUM 1 GM IV SCH (16:46)
[2019-06-11] MEDS: ACETAMINOPHEN 325 MG TAB PO PRN (16:58)
[2019-06-11 20:00] VITALS: BP 145/89
[2019-06-12] VITALS: BP 141/88
[2019-06-12 04:00] VITALS: BP 134/78
[2019-06-12 06:25] LABS: BASOPHILS % (AUTO) 0.2 % (0.0-5.0); EOSINOPHILS % (AUTO) 0.2 % (0.0-8.0); HEMATOCRIT 35.6 % (42-54); LYMPHOCYTES % (AUTO) 21.1 % (21.0-51.0); MEAN CORPUSCULAR HEMOGLOBIN 28.6 pg (27.0-33.0); MEAN CORPUSCULAR HGB CONC 32.9 g/dL (32.0-36.0); MONOCYTES % (AUTO) 10.2 % (3.0-13.0); NEUTROPHILS % (AUTO) 67.7 % (40.0-77.0); PLATELET COUNT (AUTO) 261 K/uL (130-400); RED BLOOD CELL COUNT(AUTO) 4.09 MIL/uL (4.50-6.20); RED CELL DISTRIBUTION WIDTH 16.6 % (11.0-15.5); WHITE BLOOD COUNT (AUTO) 6.3 K/uL (4.8-10.8)
[2019-06-12 06:43] LABS: CREATININE 0.8 mg/dL (0.5-1.5); MAGNESIUM 1.4 mg/dL (1.80-2.40); POTASSIUM 4.4 mmol/L (3.5-5.1)
[2019-06-12 08:00] VITALS: BP 132/77
[2019-06-12] MEDS: PANTOPRAZOLE 40 MG/VIAL IVP SCH (08:42)
[2019-06-12] MEDS: HYDROCORTISONE 20 MG TABLET PO SCH ×2 (08:43→20:10)
[2019-06-12] MEDS: MAGNESIUM OXIDE 400 MG TABLET PO SCH (08:44)
[2019-06-12] MEDS: ASPIRIN 81MG TAB.CHEW PO SCH (08:44)
[2019-06-12] MEDS: TACROLIMUS 1 MG CAPSULE PO SCH ×2 (08:44→20:10)
[2019-06-12] MEDS: HEPARIN SODIUM 5000UNIT/ML 1ML VIAL SQ SCH (08:50)
[2019-06-12] MEDS: PANTOPRAZOLE SODIUM 40 MG TABLET.DR PO SCH (10:25)
[2019-06-12 11:21] VITALS: BP 153/85
[2019-06-12] MEDS: ACETAMINOPHEN 325 MG TAB PO PRN ×4 (14:35→22:46)
[2019-06-12 16:00] VITALS: BP 125/75
[2019-06-12 19:50] VITALS: BP 143/84
[2019-06-12] MEDS: MAGNESIUM 2GM PREMIX 50ML 50 ML IV SCH (20:11)
--- NOTE | 2019-06-12 20:20 | NUR ---
MAGNESIUM magnesium level was 1.4 in the morning,covered with magnesium 2 gm iv as per protocol.
[2019-06-12] MEDS: ONDANSETRON HCL 4 MG/2 ML VIAL IVP PRN (20:29)
--- NOTE | 2019-06-12 22:25 | NUR ---
BEDBATH Bedbath rendered per staff, at bedside.
[2019-06-13] VITALS (7 sets, daily range): BP systolic 94–146; BP diastolic 61–89
--- NOTE | 2019-06-13 01:34 | NUR ---
DC TELE Telemetry dcd as per Dante Chen Np.
[2019-06-13] MEDS ORDERED: PHARMACY COMMUNICATION MISC SCH (05:30)
[2019-06-13] MEDS: PANTOPRAZOLE SODIUM 40 MG TABLET.DR PO SCH (05:47)
[2019-06-13 06:33] LABS: BASOPHILS % (AUTO) 0.2 % (0.0-5.0); EOSINOPHILS % (AUTO) 0.3 % (0.0-8.0); HEMATOCRIT 35.1 % (42-54); LYMPHOCYTES % (AUTO) 25.6 % (21.0-51.0); MEAN CORPUSCULAR HEMOGLOBIN 27.8 pg (27.0-33.0); MEAN CORPUSCULAR HGB CONC 31.9 g/dL (32.0-36.0); MEAN CORPUSCULAR VOLUME 87.1 fL (79-99); MONOCYTES % (AUTO) 11.7 % (3.0-13.0); NEUTROPHILS % (AUTO) 61.9 % (40.0-77.0); PLATELET COUNT (AUTO) 273 K/uL (130-400); RED BLOOD CELL COUNT(AUTO) 4.03 MIL/uL (4.50-6.20); RED CELL DISTRIBUTION WIDTH 16.5 % (11.0-15.5); WHITE BLOOD COUNT (AUTO) 6.2 K/uL (4.8-10.8)
[2019-06-13 06:50] LABS: CREATININE 0.8 mg/dL (0.5-1.5); MAGNESIUM 1.7 mg/dL (1.80-2.40); POTASSIUM 3.2 mmol/L (3.5-5.1)
[2019-06-13] MEDS ORDERED: COMPOUND PO MISCELLANEOUS 1 EACH MISC MISC PRN (07:15)
[2019-06-13] MEDS ORDERED: VANCOMYCIN 2 GM, SODIUM CHLORIDE 0.9% 80 ML PO SCH ×2 (07:15)
[2019-06-13] MEDS ORDERED: VANCOMYCIN 1.25 GM PO SCH (09:00)
[2019-06-13] MEDS: TACROLIMUS 1 MG CAPSULE PO SCH ×2 (09:44→20:36)
[2019-06-13] MEDS: HYDROCORTISONE 20 MG TABLET PO SCH ×2 (09:44→20:36)
[2019-06-13] MEDS: MAGNESIUM OXIDE 400 MG TABLET PO SCH (09:44)
[2019-06-13] MEDS: ASPIRIN 81MG TAB.CHEW PO SCH (09:45)
[2019-06-13] MEDS: ONDANSETRON HCL 4 MG/2 ML VIAL IVP PRN (09:45)
[2019-06-13] MEDS: POTASSIUM CHLORIDE 20 MEQ ERTAB PO PRN ×2 (09:45→17:11)
[2019-06-13] MEDS: MAGNESIUM 2GM PREMIX 50ML 50 ML IV SCH (09:46)
[2019-06-13] MEDS: VANCOMYCIN 2 GM, SODIUM CHLORIDE 0.9% 80 ML PO SCH ×10 (09:47→23:45)
[2019-06-13] MEDS: HYDROMORPHONE 1 MG/1 ML AMP IVP PRN (09:49)
--- NOTE | 2019-06-14 01:16 | NUR ---
C DIFF Pt cont on Vancomycin po for C diff +.No adverse reactions noted.
[2019-06-14 04:00] VITALS: BP 122/75
[2019-06-14] MEDS: PANTOPRAZOLE SODIUM 40 MG TABLET.DR PO SCH (05:45)
[2019-06-14] MEDS: VANCOMYCIN 2 GM, SODIUM CHLORIDE 0.9% 80 ML PO SCH ×6 (05:45→18:06)
[2019-06-14 06:06] LABS: BASOPHILS % (AUTO) 0.2 % (0.0-5.0); EOSINOPHILS % (AUTO) 0.2 % (0.0-8.0); HEMATOCRIT 35.8 % (42-54); LYMPHOCYTES % (AUTO) 22.1 % (21.0-51.0); MEAN CORPUSCULAR HEMOGLOBIN 28.1 pg (27.0-33.0); MEAN CORPUSCULAR HGB CONC 32.4 g/dL (32.0-36.0); MEAN CORPUSCULAR VOLUME 86.7 fL (79-99); MONOCYTES % (AUTO) 9.3 % (3.0-13.0); NEUTROPHILS % (AUTO) 67.7 % (40.0-77.0); PLATELET COUNT (AUTO) 311 K/uL (130-400); RED BLOOD CELL COUNT(AUTO) 4.13 MIL/uL (4.50-6.20); RED CELL DISTRIBUTION WIDTH 16.7 % (11.0-15.5); WHITE BLOOD COUNT (AUTO) 5.9 K/uL (4.8-10.8)
[2019-06-14 06:27] LABS: ALBUMIN 2.2 g/dL (3.5-5.0); BILIRUBIN,TOTAL 0.7 mg/dL (0.2-1.0); CREATININE 0.7 mg/dL (0.5-1.5); POTASSIUM 3.8 mmol/L (3.5-5.1); TOTAL PROTEIN, SERUM 5.3 g/dL (6.0-8.3)
[2019-06-14] MEDS: TACROLIMUS 1 MG CAPSULE PO SCH (07:45)
[2019-06-14] MEDS: ASPIRIN 81MG TAB.CHEW PO SCH (07:45)
[2019-06-14] MEDS: MAGNESIUM OXIDE 400 MG TABLET PO SCH (07:45)
[2019-06-14] MEDS: HYDROCORTISONE 20 MG TABLET PO SCH (07:45)
[2019-06-14 07:51] VITALS: BP 134/79
--- NOTE | 2019-06-14 08:00 | NUR ---
PT AWAKE ,AND FAMILY THERE AT THE BEDSIDE , REVIEW PLAN OF CARE FOR TODAY, POSSIBLE GOING HOME, WAITING FOR CLEARANCE FROM THE DR. . CALL LIGHT IN REACH FOR FAMILY REACH..
[2019-06-14] MEDS ORDERED: LIDOCAINE 5% TOPICAL PATCH TP SCH (09:00)
[2019-06-14 11:19] VITALS: BP 118/75
--- NOTE | 2019-06-14 12:00 | NUR ---
CM NOTE PER DR. KHAN AND DR. NAVARRETE, PATIENT READY FOR DC TODAY. MEET WITH PATIENT AND SON IN ROOM, PER PATIENT, FEELS READY TO GO HOME, SNF OFFERED D/T TOTAL MAX ASSIST AT HOME. PATIENT AND SON DECLINED STATING THEY FEELS SAFE AND COMFORTABLE TO RETURN SEEING HOW PATIENT HAS CURRENT HH, FAMILY SUPPORT AND ALL DME EQUIPMENT THEY MIGHT NEED. INFORMED DR. NAVARRETE OF PATIENTS DECISION TO RETURN HOME, WILL ROUND WITH PATIENT AND TALK ABOUT DC PLAN TODAY. EMS REQUEST FAXED AND CONFIRMATIONS RECEIVED, [facility], [place] [employer] CALLED. PER JESSY, OK FOR PATIENT TO RETURN. JAMIE SIGNED PRIOR, CLINICAL PACKED FAXED AND RECEIVED [employer] . INFORMED PRIMARY NURSE, TATUM ESQUIVEL, OF DC PLAN FOR TODAY AND TO CALL REPORT WHEN PATIENT READY FOR DC HOME VIA EMS.
[2019-06-14] MEDS: HYDROMORPHONE 1 MG/1 ML AMP IVP PRN (12:57)
[2019-06-14] MEDS ORDERED: VANC125C6 PO (13:56)
[2019-06-14 15:43] VITALS: BP 128/77
--- NOTE | 2019-06-14 18:15 | NUR ---
SL TO HIS RT WRIST , DC WITH NO REDNESS OR HEMATOMA , SM PRESSURE DRSG APPLICATION ON .
--- NOTE | 2019-06-14 18:20 | NUR ---
REPORT CALLED TO [facility] . STAFF NURSE , ABBEY HEWITT RN , REGARDING CONT OF CARE
--- NOTE | 2019-06-14 20:30 | NUR ---
EMS FF up call made to EMS,states they have an emergency but he's on their list.Son and family updated.
--- NOTE | 2019-06-14 21:58 | NUR ---
DISCHARGED HOME Ems here to black pickler pt.Pt aao x3,son at bedside.No distress noted.
--- NOTE | 2019-06-14 21:59 | NUR ---
[facility] Rental bed to be called to [facility] per Lisa GRIFFIN.
== END 2019-06-14 22:00 | disposition home or self-care (01) | DRG 871 ==
LOC: EDH 20:43 → EDHIP 22:58 → 2BH 05-31 00:55 → 2AH 05-31 01:00 → 2CH 05-31 13:55 → 2DH 06-03 21:56 → 3BH 06-04 21:58
PROVIDERS: ADMIT Internal Medicine; ATTEND Internal Medicine
PROC: 05HY33Z Insertion of Infusion Device into Upper Vein, Percutaneous Approach (ICD-10-PCS; principal; 2019-06-03)
DX: A41.51 Sepsis due to Escherichia coli [E. coli] (principal); G93.41 Metabolic encephalopathy; R53.2 Functional quadriplegia; R65.21 Severe sepsis with septic shock; J96.01 Acute respiratory failure with hypoxia; I21.A1 Myocardial infarction type 2; N39.0 Urinary tract infection, site not specified; N17.9 Acute kidney failure, unspecified; K92.2 Gastrointestinal hemorrhage, unspecified; E87.2 Acidosis; E27.40 Unspecified adrenocortical insufficiency; E44.0 Moderate protein-calorie malnutrition; Z16.24 Resistance to multiple antibiotics; Z68.1 Body mass index [BMI] 19.9 or less, adult; Z94.4 Liver transplant status; K59.09 Other constipation; N18.9 Chronic kidney disease, unspecified; K21.9 Gastro-esophageal reflux disease without esophagitis; G20 Parkinson's disease; M81.0 Age-related osteoporosis without current pathological fracture; D69.6 Thrombocytopenia, unspecified; E11.22 Type 2 diabetes mellitus with diabetic chronic kidney disease; E83.42 Hypomagnesemia; E87.6 Hypokalemia; K64.8 Other hemorrhoids; G70.9 Myoneural disorder, unspecified; I12.9 Hypertensive chronic kidney disease with stage 1 through stage 4 chronic kidney disease, or unspecified chronic kidney disease; N31.9 Neuromuscular dysfunction of bladder, unspecified; Z74.01 Bed confinement status; Z79.52 Long term (current) use of systemic steroids; Z79.899 Other long term (current) drug therapy; Z87.440 Personal history of urinary (tract) infections; Z93.59 Other cystostomy status
CPT/HCPCS: 36415; 36600; 70450; 71045; 72125; 73030; 73070; 74018; 74176; 80048; 80053; 81001; 82040; 82270; 82550; 82803; 82948; 83605; 83690; 83735; 83874; 84100; 84132; 84145; 84484; 85014; 85018; 85025; 85610; 85730; 87040; 87077; 87088; 87186; 87507; 87804; 92610; 93005; 93306; 93971; 97039; 99291; C9113; G0378; J0696; J1170; J1644; J1720; J2185; J2250; J2270; J2405; J2930; J3010; J3370; J3475; J3480; J3490; J7030; J7040; J7070; J7120; J7507; P9046; P9047

== ENCOUNTER 2019-09-25 17:57 | Inpatient (IN) | payer MEDICARE ==
[~2019-09-25] VITALS: Ht 170.2 cm; Wt 37.6 kg
[~2019-09-25 17:57] MED LIST changes: -CIPR-278 PO; +HYDR5TAB14 PO; -HYDR5TAB8 PO; +OXYB5TAB15 PO; +VANC125C6 PO
[2019-09-25] MEDS ORDERED: SODIUM CHLORIDE 0.9% 1000ML 1,000 ML IV ONE (18:09)
[2019-09-25] MEDS ORDERED: MEROPENEM 1 GM VIAL ONE (18:09)
[2019-09-25 18:40] LABS: BASOPHILS % (AUTO) 0.1 % (0.0-5.0); HEMATOCRIT 37.9 % (42-54); LYMPHOCYTES % (AUTO) 2.4 % (21.0-51.0); MEAN CORPUSCULAR HEMOGLOBIN 30.9 pg (27.0-33.0); MEAN CORPUSCULAR HGB CONC 32.5 g/dL (32.0-36.0); MEAN CORPUSCULAR VOLUME 95.2 fL (79-99); MONOCYTES % (AUTO) 3.4 % (3.0-13.0); NEUTROPHILS % (AUTO) 93.7 % (40.0-77.0); PLATELET COUNT (AUTO) 142 K/uL (130-400); RED BLOOD CELL COUNT(AUTO) 3.98 MIL/uL (4.50-6.20); RED CELL DISTRIBUTION WIDTH 16.1 % (11.0-15.5); WHITE BLOOD COUNT (AUTO) 9.8 K/uL (4.8-10.8)
[2019-09-25 18:53] LABS: INR 1.14 (0.85-1.15); PARTIAL THROMBOPLASTIN TIME 37.1 SEC (26.3-35.5); PROTHROMBIN TIME 12.2 SEC (9.6-11.6)
[2019-09-25 19:02] LABS: CARBON DIOXIDE 22 mmol/L (21-32); CHLORIDE 103 mmol/L (101-111); CREATININE 1.4 mg/dL (0.5-1.5); GLOMERULAR FILTR. RATE CALC 55 mL/min (>60); GLUCOSE,RANDOM 135 mg/dL (70-105); POTASSIUM 3.5 mmol/L (3.5-5.1); SODIUM SERUM 140 mmol/L (136-145); UREA NITROGEN, BLOOD 40 mg/dL (7-18)
[2019-09-25 19:17] LABS: ALANINE AMINOTRANSFERASE 7 U/L (12-78); ALBUMIN 2.5 g/dL (3.5-5.0); ASPARTATE AMINOTRANSFERASE 12 U/L (10-37); BILIRUBIN,TOTAL 1.8 mg/dL (0.2-1.0); CREATINE KINASE, TOTAL 17 U/L (21-232); MYOGLOBIN 170 ng/mL (10-92); TOTAL PROTEIN, SERUM 6.3 g/dL (6.0-8.3); TROPONIN I < 0.04 ng/mL (0.00-0.06)
[2019-09-25 19:17] LABS: APPEARANCE,URINE TURBID (CLEAR); BILIRUBIN,URINE SMALL (NEGATIVE); COLOR,URINE YELLOW (YELLOW); GLUCOSE, URINE (UA) NEGATIVE (NEGATIVE); KETONES,URINE NEGATIVE (NEGATIVE); LEUKOCYTE ESTERASE ,URINE LARGE (NEGATIVE); NITRATE,URINE NEGATIVE (NEGATIVE); OCCULT BLOOD,URINE LARGE (NEGATIVE); PROTEIN,URINE 30 mg/dL (NEGATIVE); UROBILINOGEN,URINE 0.2 mg/dL (0.2-1.0)
[2019-09-25 19:35] LABS: BACTERIA,URINE Many /HPF (None Seen); MUCUS,URINE Few LPF (None Seen); SQUAMOUS EPITHELIAL CELL,UR Few /HPF (0-2); WBC,URINE 51-100 /HPF (0-1)
[2019-09-25] MEDS ORDERED: FAMOTIDINE/PF 20 MG/2 ML VIAL IV SCH (21:00)
[2019-09-25] MEDS ORDERED: ACETAMINOPHEN 325 MG TAB PO PRN (21:00)
[2019-09-25] MEDS: MEROPENEM 500 MG VIAL IV SCH (21:00)
[2019-09-25] MEDS: SODIUM CHLORIDE 0.9% 1000ML 1,000 ML IV SCH (21:00)
[2019-09-25] MEDS ORDERED: PHARMACY COMMUNICATION MISC SCH (21:15)
[2019-09-26] VITALS (23 sets, daily range): BP systolic 91–120; BP diastolic 68–86
[2019-09-26] MEDS ORDERED: HYDR5TAB14 PO (04:16)
[2019-09-26] MEDS ORDERED: TACR1CAP10 PO (04:16)
[2019-09-26] MEDS ORDERED: FLUO10CA22 PO (04:16)
[2019-09-26] MEDS ORDERED: POTA-79 PO (04:16)
[2019-09-26] MEDS ORDERED: MEGE40L PO (04:16)
[2019-09-26] MEDS ORDERED: MIDO10TA PO (04:16)
[2019-09-26] MEDS ORDERED: PANT40TA25 PO (04:16)
[2019-09-26] MEDS ORDERED: HYDR-4060 PO (04:16)
[2019-09-26] MEDS ORDERED: OXYB5TAB15 PO (04:16)
[2019-09-26] MEDS ORDERED: ZOLP10TA2 PO (04:16)
[2019-09-26] MEDS ORDERED: LINA145C PO (04:16)
[2019-09-26 06:05] LABS: BASOPHILS % (AUTO) 0.1 % (0.0-5.0); HEMATOCRIT 33.2 % (42-54); LYMPHOCYTES % (AUTO) 3.8 % (21.0-51.0); MEAN CORPUSCULAR HGB CONC 32.2 g/dL (32.0-36.0); MEAN CORPUSCULAR VOLUME 96.2 fL (79-99); MONOCYTES % (AUTO) 2.5 % (3.0-13.0); NEUTROPHILS % (AUTO) 92.6 % (40.0-77.0); PLATELET COUNT (AUTO) 126 K/uL (130-400); RED BLOOD CELL COUNT(AUTO) 3.45 MIL/uL (4.50-6.20); RED CELL DISTRIBUTION WIDTH 16.1 % (11.0-15.5); WHITE BLOOD COUNT (AUTO) 7.9 K/uL (4.8-10.8)
[2019-09-26] MEDS: MEROPENEM 500 MG VIAL IV SCH ×3 (06:18→21:03)
[2019-09-26] MEDS: SODIUM CHLORIDE 0.9% 1000ML 1,000 ML IV SCH (06:19)
[2019-09-26 06:20] LABS: CREATININE 1.2 mg/dL (0.5-1.5); POTASSIUM 3.3 mmol/L (3.5-5.1)
[2019-09-26] MEDS ORDERED: VANCOMYCIN PROTOCOL PER PHARMACY IV PRN (09:00)
[2019-09-26] MEDS ORDERED: RENAL DOSE IV SCH (09:00)
[2019-09-26] MEDS ORDERED: VANCOMYCIN 1GM+NS 250ML 250 ML IV SCH (09:00)
[2019-09-26] MEDS: FAMOTIDINE/PF 20 MG/2 ML VIAL IV SCH (09:25)
[2019-09-26] MEDS: ONDANSETRON HCL 4 MG/2 ML VIAL IV PRN (09:52)
--- NOTE | 2019-09-26 10:05 | NUR ---
DYSPHAGIA EVAL COMPLETED +S/S OF ASPIRATION. RECOMMEND ASSISTANT FEDERAL PUBLIC DEFENDER ALTERNATE MEANS OF NUTRITION/HYDRATION AT THIS TIME. WATER TANKER DRIVER REVIEWED RESULTS AND RECOMMENDATIONS WITH Pt AND SON AT BEDSIDE. SON VOICED UNDERSTANDING OF RISK AND CONSEQUENCES OF ASPIRATION. ALL QUESTIONS ANSWERED AT THIS TIME. RECOMMENDATIONS: DYSPHAGIA THERAPY 3-5XWEEK TO INCREASE ORAL MOTOR STRENGTH AND PHARYNGEAL SWALLOW: LTG#1: Pt WILL TOLERATE LEAST RESTRICTIVE DIET TO MEET NUTRITION/HYDRATION WITH NO S/S OF ASPIRATION. LTG#2: SKILLED EDUCATION Pt/FAMILY/STAFF STG#1: Pt WILL PARTICIPATE IN LARYNGEAL ELEVATION/EXCURSION EXERCISES WITH 80% ACCURACY. STG#2: Pt WILL PARTICIPATE IN TONGUE BASE RETRACTION EXERCISES WITH 80% ACCURACY. STG#3: Pt WILL PARTICIPATE IN ORAL MOTOR EXERCISES WITH 80% ACCURACY. STG#4: Pt WILL TOLERATE THERAPEUTIC TRIALS OF THIN LIQUIDS WITH NO OVERT S/S OF ASPIRATION. STG#5: Pt WILL BE ABLE TO PARTICIPATE IN MBSS AFTER 2-4 WEEKS OF THERAPEUTIC INTERVENTION. STG#6: SKILLED EDUCATION Pt/FAMILY/STAFF. WATER TANKER DRIVER COORDINATED CARE WITH NURSE CARPENTER. Addendum: 09/26/[address] YULIYA MOISE Amended: Links added.
--- NOTE | 2019-09-26 11:46 | NUR ---
[facility] CONSULT PATIENT ASSESSED REQUESTED: [facility] RECOMMENDATIONS SUBMITTED AND REPORT GIVEN TO PATIENT'S NURSE. Addendum: 09/26/19 at 1148 by JOSE PATEL LVN Amended: Links added.
[2019-09-26] MEDS ORDERED: HYDROMORPHONE HCL 0.5 MG/0.5 ML ML IVP PRN (12:45)
[2019-09-26] MEDS ORDERED: MAGNESIUM 2GM PREMIX 50ML 50 ML IV SCH (13:15)
[2019-09-26] MEDS: DEXTROSE 5%-LACTATED RINGERS 1,000 ML IV SCH ×2 (13:37→21:04)
--- NOTE | 2019-09-26 13:56 | NUR ---
DC PLAN VISITED WITH PATIENT. SPOKE TO PATIENT AND SON. PATIENT DEBILITATED. PATIENT LIVES WITH SPOUSE/SON. STILL HAS [facility] AND PROVIDER SERVICES THROUGH [facility] 40 HRS A WEEK. PATIENT HAS WHEEL CHAIR, HOSPITAL BED, NEBULIZER PLAN IS TO RETURN HOME. SON WONDERED REGARDING A SUCTION MACHINE. WILL ASK MD. EXPLAINED THAT HE MIGHT HAVE TO GET IT FROM PRIMARY. VERBALIZED UNDERSTANDING. Addendum: 09/26/19 at 1402 by ABIOLA MILLS RN CM Amended: Links added.
[2019-09-26] MEDS ORDERED: ERYTHROMYCIN BASE 250 MG TABLET PO SCH (14:00)
--- NOTE | 2019-09-26 14:33 | NUR ---
RD NOTIFICATION - TUBE FEEDING RECOMMENDATIONS Pt with severe malnutrition (emaciated, BMI 12.3, severe muscle/fat loss). Dysphagia, Functional quadriplegia, Coccyx ulcer. Risk for Refeeding syndrome. Recommend low rate Tube feeding Tube Feeding Recommendation: Initiate Two [place] HN at 10mls/hr as medically feasible. Gradually increase rate as tolerated by 5mls every 5 hours. Goal rate of 30mls/hr to provide 1440kcal,60gm protein,504mls free H2O as medically feasible. Recommendations faxed to 2nd floor, Pod B (ext [phone]). RN notified. RD to continue to monitor. Please notify as additional nutrition concerns arise. Thank you. Addendum: 09/26/19 at [address] Amended: Links added.
[2019-09-26] MEDS: HONEY 1 APPL/ML TUBE TP SCH (14:43)
[2019-09-26] MEDS: ERYTHROMYCIN BASE 250 MG TABLET PO SCH ×3 (14:44→23:57)
[2019-09-26] MEDS: LACTULOSE 20 GM/30 ML UDCUP PO PRN (14:44)
[2019-09-26] MEDS ORDERED: BISACODYL 10 MG SUPP.RECT RC PRN (14:45)
[2019-09-26] MEDS: ACETAMINOPHEN 325 MG TAB PO PRN (15:16)
[2019-09-26] MEDS: METOCLOPRAMIDE 10 MG/2 ML VIAL IVP SCH ×2 (16:25→21:01)
[2019-09-26] MEDS ORDERED: DEXTROSE 50%-WATER 50 ML DISP.SYRIN IV PRN (16:45)
[2019-09-26] MEDS ORDERED: GLUCAGON 1MG KIT 1 MG ML IM PRN (16:45)
[2019-09-26] MEDS: INSULIN HUMULIN R 100 UNIT/ML 3ML SQ SCH ×2 (18:00→23:54)
[2019-09-26] MEDS ORDERED: POTASSIUM CHLORIDE 10MEQ/100ML 10 MEQ/100 ML ML IV SCH (18:30)
--- NOTE | 2019-09-26 19:30 | NUR ---
ASSESSMENT PT RESTING QUIETLY IN BED, FAMILY AT BEDSIDE. PT NOTED WITH SEVERE WEAKNESS, CONTRACTURES NOTED TO BUE AND BLE CONTRACTURES WITH BILATERAL FOOT DROP. PT AAO, FOLLOWS SIMPLE COMMANDS. ASSESSMENT COMPLETED, SEE FLOW SHEET.
--- NOTE | 2019-09-26 20:25 | NUR ---
CT 2007: PT TAKEN TO RADIOLOGY FOR CT OF CHEST VIA BED WITH BEDSIDE MONITOR IN PLACE. V/S: 91-21-100%-2l 110/76. 2024: BACK IN PT'S ROOM
--- NOTE | 2019-09-26 20:31 | NUR ---
US US AT BEDSIDE FOR BLE DOPPLER STUDIES
[2019-09-26] MEDS: LINEZOLID 600 MG/ISO-OSM 300 ML IV SCH (20:55)
[2019-09-26] MEDS ORDERED: SENNOSIDES 8.6 MG TABLET PO SCH (21:00)
[2019-09-26] MEDS: THIAMINE HCL 100 MG TABLET PO SCH (21:02)
[2019-09-26] MEDS: HYDROCORTISONE 20 MG TABLET PO SCH (21:03)
--- NOTE | 2019-09-26 21:03 | NUR ---
erythromycin ec not given, pt NPO with NGT, med is DO NOT CRUSH
--- NOTE | 2019-09-26 22:31 | NUR ---
DR CHIQUIS SIM AWARE OF US RESULTS, SEE ORDERS FOR LOVENOX
[2019-09-27] VITALS (24 sets, daily range): BP systolic 94–137; BP diastolic 61–86
--- NOTE | 2019-09-27 00:01 | NUR ---
NPO PT NPO FOR PENDING PEG PLACEMENT
[2019-09-27 03:54] LABS: BASOPHILS % (AUTO) 0.1 % (0.0-5.0); HEMATOCRIT 28.9 % (42-54); LYMPHOCYTES % (AUTO) 4.1 % (21.0-51.0); MEAN CORPUSCULAR HEMOGLOBIN 30.5 pg (27.0-33.0); MEAN CORPUSCULAR HGB CONC 33.2 g/dL (32.0-36.0); MEAN CORPUSCULAR VOLUME 91.7 fL (79-99); MONOCYTES % (AUTO) 2.1 % (3.0-13.0); NEUTROPHILS % (AUTO) 92.8 % (40.0-77.0); PLATELET COUNT (AUTO) 100 K/uL (130-400); RED BLOOD CELL COUNT(AUTO) 3.15 MIL/uL (4.50-6.20); RED CELL DISTRIBUTION WIDTH 15.9 % (11.0-15.5); WHITE BLOOD COUNT (AUTO) 7.7 K/uL (4.8-10.8)
[2019-09-27 04:08] LABS: INR 1.11 (0.85-1.15); PARTIAL THROMBOPLASTIN TIME 36.2 SEC (26.3-35.5); PROTHROMBIN TIME 11.9 SEC (9.6-11.6)
[2019-09-27 04:27] LABS: % IRON SATURATION 51.3 % (30-44)
[2019-09-27 04:35] LABS: BILIRUBIN,DIRECT 0.5 mg/dL (0.0-0.3); BILIRUBIN,TOTAL 1.3 mg/dL (0.2-1.0); CREATININE 1.1 mg/dL (0.5-1.5); MAGNESIUM 1.9 mg/dL (1.80-2.40); PHOSPHORUS 1.8 mg/dL (2.5-4.9); POTASSIUM 3.5 mmol/L (3.5-5.1); THYROID STIMULATING HORMONE 2.35 uIU/mL (0.36-3.74); TOTAL PROTEIN, SERUM 4.8 g/dL (6.0-8.3)
--- NOTE | 2019-09-27 04:45 | NUR ---
WAFFLE MATTRESS WAFFLE MATTRESS PLACED ON BED
[2019-09-27] MEDS: INSULIN HUMULIN R 100 UNIT/ML 3ML SQ SCH ×3 (05:25→17:34)
[2019-09-27] MEDS: METOCLOPRAMIDE 10 MG/2 ML VIAL IVP SCH ×2 (06:15→12:03)
[2019-09-27] MEDS ORDERED: PHENYLEPHRINE HCL 10 MG/ML 1ML VIAL IV ONE (07:35)
[2019-09-27] MEDS ORDERED: SODIUM CHLORIDE 0.9% 10 ML VIAL ONE (07:35)
[2019-09-27] MEDS ORDERED: PROPOFOL 10 MG/ML 20ML VIAL IV ONE (07:35)
[2019-09-27] MEDS ORDERED: LIDOCAINE HCL-MPF 2% 5ML VIAL ONE (07:35)
[2019-09-27] MEDS ORDERED: COMPOUND IV MISC 1 EACH IVSOLN MISC PRN (08:00)
--- NOTE | 2019-09-27 08:08 | NUR ---
PEG TUBE PEG TUBE PROCEDURE STARTED AT THIS TIME BY ENDOSCOPY TEAM AT BEDSIDE. DR. AMARO TO DO PEG. DEMAND PLANNING MANAGER, TECH AND RN PRESENT DURING PROCEDURE.
[2019-09-27] MEDS ORDERED: ENOXAPARIN SODIUM 30 MG/0.3 ML SQ SCH (09:00)
[2019-09-27] MEDS ORDERED: ENOXAPARIN SODIUM 40 MG/0.4 ML SYRINGE SQ SCH (09:00)
[2019-09-27] MEDS ORDERED: VANCOMYCIN 500MG+NS 100ML 100 ML IV SCH (09:00)
[2019-09-27] MEDS: IRON SUCROSE COMPLEX 300 MG in SODIUM CHLORIDE 0.9% 50 ML IV SCH (09:01)
[2019-09-27] MEDS: LACTULOSE 20 GM/30 ML UDCUP PO PRN (09:01)
[2019-09-27] MEDS: LINEZOLID 600 MG/ISO-OSM 300 ML IV SCH ×2 (09:01→20:55)
[2019-09-27] MEDS: THIAMINE HCL 100 MG TABLET PO SCH ×2 (09:01→20:56)
[2019-09-27] MEDS: SENNOSIDES 8.6 MG TABLET PO SCH (09:02)
[2019-09-27] MEDS: FOLIC ACID 1 MG TABLET PO SCH (09:02)
[2019-09-27] MEDS: HONEY 1 APPL/ML TUBE TP SCH (09:02)
[2019-09-27] MEDS: HYDROCORTISONE 20 MG TABLET PO SCH ×2 (09:02→20:57)
[2019-09-27] MEDS: MEROPENEM 500 MG VIAL IV SCH ×2 (09:03→20:55)
[2019-09-27] MEDS: FAMOTIDINE/PF 20 MG/2 ML VIAL IV SCH (09:03)
--- NOTE | 2019-09-27 09:20 | NUR ---
SWALLOWING TREATMENT COMPLETED S: Pt COOPERATIVE WITH THERAPEUTIC SWALLOWING GOALS. Pt CURRENTLY NPO WITH PEG IN PLACE. Pt VERY LETHARGIC. Pt MOUTHING HE FEELS NAUSEOUS AND TIRED. 0: Pt CURRENTLY TARGETING SWALLOWING GOALS, RESULTS ARE FOLLOWS: 1. Pt PARTICIPATED IN LARYNGEAL ELEVATION/EXCURSION EXERCISES WITH 60% ACCURACY. Pt EASILY FATIGUED AND WAS GIVEN BREAKS IN BETWEEN TRIALS TO REGAIN HIS BREATH. 2. Pt PARTICIPATED IN TONGUE BASE RETRACTION EXERCISES WITH 80% ACCURACY. 3. Pt PARTICIPATED IN ORAL MOTOR EXERCISES WITH 90% ACCURACY. 4. Pt NOT IN A GOOD STATE TO PARTICIPATE IN P.O. THERAPEUTIC TRIALS AT THIS TIME. 5. SKILLED EDUCATION Pt/FAMILY/STAFF: COMPLETED A: EDUCATIONAL DIRECTOR EDUCATED Pt AND SON AT BEDSIDE ON RISKS AND CONSEQUENCES OF ASPIRATION. SON VERBALIZED UNDERSTANDING. Pt WITH VERY MINIMAL AUDIBLE VOICE. Pt EXPRESSED HE WAS TIRED. P: RECOMMEND THE CONTINUATION OF SPEECH THERAPY TO ADDRESS SWALLOWING GOALS. EDUCATIONAL DIRECTOR COORDINATED WITH NURSE KOWALSKI. EDUCATIONAL DIRECTOR WILL CONTINUE TO FOLLOW Pt DURING THE LENGTH OF STAY IN THE HOSPITAL. Addendum: 09/27/[address] YULIYA MOISE Amended: Links added.
--- NOTE | 2019-09-27 09:38 | NUR ---
RD UPDATE RD notification for tube feeding recommendations. Recommendations re-faxed this AM, with [facility] Recommendations. RN Notified. RN received. Recommend low rate continuous tube feeding at this time due to risk for refeeding syndrome
[2019-09-27] MEDS: ONDANSETRON HCL 4 MG/2 ML VIAL IV PRN ×2 (10:05→21:01)
[2019-09-27] MEDS ORDERED: IODIXANOL 320 MG/ML 100 ML VIAL ONE (10:13)
[2019-09-27] MEDS ORDERED: LIDOCAINE HCL 1% MDV 50ML VIAL ONE (10:14)
[2019-09-27] MEDS ORDERED: FENTANYL CITRATE PF 50 MCG/1 ML 2ML VIAL ONE (10:14)
[2019-09-27] MEDS ORDERED: MIDAZOLAM HCL 1 MG/ML 2ML VIAL ONE (10:14)
[2019-09-27] MEDS: TACROLIMUS 1 MG CAPSULE PO SCH ×2 (10:19→20:55)
--- NOTE | 2019-09-27 10:35 | NUR ---
IVC FILTER PATIENT TAKEN BY RIM FIRE PRIMING TOOL SETTER/IR TEAM AT THIS TIME FOR IVC FILTER INSERTION.
[2019-09-27] MEDS ORDERED: PHARMACY COMMUNICATION MISC SCH (13:00)
[2019-09-27] MEDS ORDERED: METOCLOPRAMIDE 10 MG/2 ML VIAL IVP PRN (13:00)
[2019-09-27] MEDS: ERYTHROMYCIN BASE 250 MG TABLET PO SCH ×2 (14:21→20:57)
[2019-09-27] MEDS: DOCUSATE SODIUM 100 MG CAP PO SCH ×2 (14:21→20:58)
[2019-09-27] MEDS: POTASSIUM CHLORIDE 10% ELIXIR 20 MEQ/15 ML UDCUP PO SCH ×2 (14:24→17:36)
--- NOTE | 2019-09-27 18:38 | NUR ---
REPORT REPORT GIVEN TO WALLY ESQUIVEL AT THIS TIME. PATIENT WILL BE TRANSFERRED TO ROOM 432.
--- NOTE | 2019-09-27 19:01 | NUR ---
TRANSFER FROM 209 PATIENT ARRIVED TO FLOOR. PATIENT IS AAOX1. HAS NEW PEG TUBE IN PLACE. F/C PRESENT. NO SIGNS OF DISTRESS AT THIS TIME.
[2019-09-27] MEDS: CARVEDILOL 3.125 MG TABLET PO SCH (20:56)
[2019-09-28] VITALS (17 sets, daily range): BP systolic 66–140; BP diastolic 50–91
[2019-09-28] MEDS: INSULIN HUMULIN R 100 UNIT/ML 3ML SQ SCH ×4 (00:55→18:00)
[2019-09-28 04:03] LABS: BASOPHILS % (AUTO) 0.3 % (0.0-5.0); LYMPHOCYTES % (AUTO) 3.2 % (21.0-51.0); MEAN CORPUSCULAR HGB CONC 33.6 g/dL (32.0-36.0); MEAN CORPUSCULAR VOLUME 92.2 fL (79-99); MONOCYTES % (AUTO) 1.7 % (3.0-13.0); NEUTROPHILS % (AUTO) 93.6 % (40.0-77.0); PLATELET COUNT (AUTO) 92 K/uL (130-400); RED BLOOD CELL COUNT(AUTO) 3.58 MIL/uL (4.50-6.20); RED CELL DISTRIBUTION WIDTH 15.9 % (11.0-15.5); WHITE BLOOD COUNT (AUTO) 7.4 K/uL (4.8-10.8)
[2019-09-28 04:24] LABS: BILIRUBIN,TOTAL 1.2 mg/dL (0.2-1.0); MAGNESIUM 1.6 mg/dL (1.80-2.40); PHOSPHORUS 0.9 mg/dL (2.5-4.9); TOTAL PROTEIN, SERUM 5.3 g/dL (6.0-8.3)
[2019-09-28] MEDS: DOCUSATE SODIUM 100 MG CAP PO SCH (04:55)
[2019-09-28] MEDS: ERYTHROMYCIN BASE 250 MG TABLET PO SCH (04:55)
[2019-09-28] MEDS: ACETAMINOPHEN 325 MG TAB PO PRN ×2 (05:00→18:58)
[2019-09-28] MEDS ORDERED: LANSOPRAZOLE 15 MG SOLU TAB PEG SCH (09:00)
[2019-09-28] MEDS: CHOLECALCIFEROL 5000 UNIT PO SCH (09:00)
[2019-09-28] MEDS: IRON SUCROSE COMPLEX 300 MG in SODIUM CHLORIDE 0.9% 50 ML IV SCH (09:02)
[2019-09-28] MEDS: ZINC SULFATE 220 CAPSULE PO SCH (09:05)
[2019-09-28] MEDS: MEROPENEM 500 MG VIAL IV SCH ×2 (09:05→22:31)
[2019-09-28] MEDS: LINEZOLID 600 MG/ISO-OSM 300 ML IV SCH ×2 (09:05→22:31)
[2019-09-28] MEDS: FOLIC ACID 1 MG TABLET PO SCH (09:06)
[2019-09-28] MEDS: TACROLIMUS 1 MG CAPSULE PO SCH ×2 (09:06→22:32)
[2019-09-28] MEDS: SENNOSIDES 8.6 MG TABLET PO SCH (09:06)
[2019-09-28] MEDS: HYDROCORTISONE 20 MG TABLET PO SCH ×2 (09:06→22:32)
[2019-09-28] MEDS: MAGNESIUM OXIDE 400 MG TABLET PO SCH (09:06)
[2019-09-28] MEDS: CARVEDILOL 3.125 MG TABLET PO SCH ×2 (09:06→20:44)
[2019-09-28] MEDS: THIAMINE HCL 100 MG TABLET PO SCH ×2 (09:06→22:32)
[2019-09-28] MEDS: LANSOPRAZOLE 15 MG SOLU TAB PEG SCH (09:07)
[2019-09-28] MEDS: HONEY 1 APPL/ML TUBE TP SCH (09:10)
[2019-09-28] MEDS: ONDANSETRON HCL 4 MG/2 ML VIAL IV PRN ×2 (09:28→18:57)
--- NOTE | 2019-09-28 12:54 | NUR ---
RD FOLLOW UP Pt transferred to [facility]. Pt tolerating Bolus Tube Feedings as per RN. No report of GI distress. Recommend to continue tube feedings at this time. RD to continue to monitor nutritional labs, Pt weight, nutrition status. Addendum: 09/28/19 at [address] Amended: Links added.
[2019-09-28] MEDS: DOCUSATE NA 100MG/10ML UDCUP PEG SCH ×2 (14:04→22:32)
[2019-09-28] MEDS: ERYTHROMYCIN BASE 250 MG TABLET PEG SCH ×2 (14:52→22:32)
[2019-09-28] MEDS ORDERED: MIDODRINE HCL 5 MG TABLET PO SCH ×2 (15:50→21:00)
[2019-09-28] MEDS ORDERED: LACTATED RINGERS 1000ML 1,000 ML IV ONE (20:24)
[2019-09-28 21:28] LABS: ABG BASE EXCESS -2.9 mmol/L (-2.0-3.0); ABG HCO3 24.1 mmol/L (21.0-28.0); ABG OXYGEN SATURATION 91.9 % (95.0-99.0); ABG PCO2 52 mmHg (35-48)
[2019-09-29] VITALS (29 sets, daily range): BP systolic 72–117; BP diastolic 33–76
[2019-09-29] MEDS ORDERED: LACTATED RINGERS 1000ML 1,000 ML IV SCH (02:45)
[2019-09-29] MEDS: INSULIN HUMULIN R 100 UNIT/ML 3ML SQ SCH ×3 (05:43→11:41)
[2019-09-29] MEDS: DOCUSATE NA 100MG/10ML UDCUP PEG SCH ×2 (05:56→14:00)
[2019-09-29] MEDS: ERYTHROMYCIN BASE 250 MG TABLET PEG SCH ×2 (05:56→14:46)
--- NOTE | 2019-09-29 08:35 | NUR ---
HOLD TREATMENT ROUGHER FOR CEMENT COORDINATED WITH NURSE MEHTA. SPEECH THERAPY ON HOLD. Pt CURRENTLY ON BIPAP. ROUGHER FOR CEMENT WILL CONTINUE WITH SWALLOWING GOALS WHEN Pt IS OFF OF BIPAP. Addendum: 09/29/[address] YULIYA MOISE Amended: Links added.
[2019-09-29] MEDS: CHOLECALCIFEROL 5000 UNIT PO SCH (09:00)
[2019-09-29] MEDS ORDERED: APIXABAN 2.5 MG TABLET PO SCH ×2 (09:00→21:00)
[2019-09-29] MEDS: SENNOSIDES 8.6 MG TABLET PO SCH (09:00)
[2019-09-29] MEDS ORDERED: FUROSEMIDE 10 MG/ML 4ML VIAL IV SCH (09:15)
[2019-09-29] MEDS: LINEZOLID 600 MG/ISO-OSM 300 ML IV SCH (09:22)
[2019-09-29] MEDS: ZINC SULFATE 220 CAPSULE PO SCH (09:23)
[2019-09-29] MEDS: TACROLIMUS 1 MG CAPSULE PO SCH (09:23)
[2019-09-29] MEDS: THIAMINE HCL 100 MG TABLET PO SCH (09:24)
[2019-09-29] MEDS: MIDODRINE HCL 5 MG TABLET PO SCH ×2 (09:24→14:36)
[2019-09-29] MEDS: FOLIC ACID 1 MG TABLET PO SCH (09:24)
[2019-09-29] MEDS: MAGNESIUM OXIDE 400 MG TABLET PO SCH (09:24)
[2019-09-29] MEDS: HYDROCORTISONE 20 MG TABLET PO SCH (09:24)
[2019-09-29] MEDS: MEROPENEM 500 MG VIAL IV SCH (09:25)
[2019-09-29] MEDS: LANSOPRAZOLE 15 MG SOLU TAB PEG SCH (09:25)
[2019-09-29 09:31] LABS: ABG BASE EXCESS -3.5 mmol/L (-2.0-3.0); ABG HCO3 23.2 mmol/L (21.0-28.0); ABG OXYGEN SATURATION 97.6 % (95.0-99.0); ABG PCO2 48 mmHg (35-48)
[2019-09-29] MEDS: HONEY 1 APPL/ML TUBE TP SCH (09:48)
[2019-09-29] MEDS ORDERED: HYDROCORTISONE SOD SUCCINATE 100 MG/2 ML VIAL IV SCH ×3 (10:45→21:00)
[2019-09-29] MEDS ORDERED: NOREPINEPHRINE 4MG/NS 250ML 250 ML IV ONE (12:26)
--- NOTE | 2019-09-29 12:30 | NUR ---
TRANSFER PT TO ICU PT WAS BROUGHT DOWN ON NC AT 2L, AGONAL BREATHING. SBP IN THE 90s. PT NOT AWAKE AND NOT FOLLOWING COMMANDS. SON AT BEDSIDE. DR. SIM SPOKE WITH FAMILY MEMBERS ABOUT PLAN OF CARE.
[2019-09-29] MEDS: ONDANSETRON HCL 4 MG/2 ML VIAL IV PRN (13:19)
[2019-09-29] MEDS ORDERED: LORAZEPAM 2 MG/ML 1 ML VIAL IVP PRN (15:15)
[2019-09-29] MEDS ORDERED: PHARMACY COMMUNICATION MISC SCH (15:15)
[2019-09-29] MEDS ORDERED: MORPHINE-NS 50 MG/50 ML 50 ML IV PRN (16:00)
--- NOTE | 2019-09-30 10:43 | NUR ---
[facility] SW spoke to nurse Mony, pt is now mouth breathing and we are concerned pt may not make it home or pass in ambulance. Sw called pt's who asked I talk to pt's son Sterling. Sw explained to son concerns of nurse and educated son on [facility] hospice. Encouraged son to speak to pt's and see if she is agreeable to hospice eval for GIP, and encouraged family to come see pt. Sw spoke to Venita, plumbing warehouse helper and got permission for son, and daughter to visit. Sw spoke to son who states they are agreeable and I explained that needed to be present to sign paperwork. Son stated that was "baby sitting her grand baby and they were trying to limit visitors to pt" so he would sign. Explained to son, that seeing pt before he passed is important to both pt and . Explained to son, that is MPOA since pt does not have Directives in place and would have to be the one signing all documents. "I guess I'll bring her over". SW asked Mariya and Chaya RN from [facility] to evaluated pt for GIP since they were on the floor and they stated pt does meet criteria. Mariya met with pt's and completed paperwork and admission was completed.
--- NOTE | 2019-09-30 16:43 | NUR ---
RD UPDATE RD Notification of Inpatient Hospice. Hospice measures in place. RD to monitor. Please notify as nutritional concerns arise. Thank you.
== END 2019-09-30 10:10 | DRG 853 ==
LOC: EDH 17:57 → EDHIP 20:52 → 2BH 23:17 → 4AH 09-27 19:03 → 2BH 09-29 11:24 → 3AH 09-29 19:58
PROVIDERS: ADMIT Internal Medicine; ATTEND Internal Medicine
PROC: 0DH63UZ Insertion of Feeding Device into Stomach, Percutaneous Approach (ICD-10-PCS; principal; 2019-09-27)
PROC: 06H03DZ Insertion of Intraluminal Device into Inferior Vena Cava, Percutaneous Approach (ICD-10-PCS; 2019-09-27)
DX: A41.50 Gram-negative sepsis, unspecified (principal); R53.2 Functional quadriplegia; E43 Unspecified severe protein-calorie malnutrition; I26.99 Other pulmonary embolism without acute cor pulmonale; R65.21 Severe sepsis with septic shock; I50.43 Acute on chronic combined systolic (congestive) and diastolic (congestive) heart failure; J96.02 Acute respiratory failure with hypercapnia; Z94.4 Liver transplant status; J21.9 Acute bronchiolitis, unspecified; N17.9 Acute kidney failure, unspecified; L03.119 Cellulitis of unspecified part of limb; E87.4 Mixed disorder of acid-base balance; I82.403 Acute embolism and thrombosis of unspecified deep veins of lower extremity, bilateral; J98.11 Atelectasis; E27.40 Unspecified adrenocortical insufficiency; N13.6 Pyonephrosis; R64 Cachexia; Z68.1 Body mass index [BMI] 19.9 or less, adult; E87.0 Hyperosmolality and hypernatremia; E87.6 Hypokalemia; L89.152 Pressure ulcer of sacral region, stage 2; D69.6 Thrombocytopenia, unspecified; N31.9 Neuromuscular dysfunction of bladder, unspecified; D50.9 Iron deficiency anemia, unspecified; K56.41 Fecal impaction; K70.30 Alcoholic cirrhosis of liver without ascites; N18.9 Chronic kidney disease, unspecified; R47.02 Dysphasia; K21.9 Gastro-esophageal reflux disease without esophagitis; R13.12 Dysphagia, oropharyngeal phase; E86.0 Dehydration; G20 Parkinson's disease; E86.1 Hypovolemia; K57.90 Diverticulosis of intestine, part unspecified, without perforation or abscess without bleeding; M81.0 Age-related osteoporosis without current pathological fracture; Z93.1 Gastrostomy status; Z74.01 Bed confinement status; Z93.59 Other cystostomy status; Z87.440 Personal history of urinary (tract) infections; Z86.718 Personal history of other venous thrombosis and embolism; Z86.73 Personal history of transient ischemic attack (TIA), and cerebral infarction without residual deficits
CPT/HCPCS: 36415; 36600; 37191; 43246; 71045; 71250; 74176; 80048; 80053; 80076; 81001; 82306; 82435; 82550; 82607; 82746; 82803; 82947; 82948; 83540; 83550; 83605; 83735; 83874; 84100; 84132; 84134; 84145; 84295; 84443; 84484; 85018; 85025; 85610; 85730; 87040; 87077; 87088; 87186; 92526; 92610; 93005; 93970; 94660; G0378; J1644; J1720; J1756; J1815; J1940; J2020; J2185; J2250; J2270; J2370; J2405; J2704; J2765; J3010; J3370; J3475; J3490; J7030; J7120; J7507; Q9967

== ENCOUNTER 2019-09-30 10:11 | Inpatient (IN) | payer OTHER ==
[~2019-09-30 10:11] MED LIST changes: +FLUO10CA22 PO; +LINA145C PO; +MEGE40L PO; +POTA-79 PO; -VANC125C6 PO; +ZOLP10TA2 PO; -ZOLP10TA6 PO
--- NOTE | 2019-09-30 11:00 | NUR ---
ADVISED BY DIAMOND SIZER AND SORTER THAT THIS PATIENT WILL BE A [facility] PATIENT UNDER GIP AND IWLL BE TOO UNSTABLE FOR TRANSFER. DETAILED CM ASSESMENT DEFERRED. Addendum: 09/30/19 at 1710 by OLGA SMITH RN CM Amended: Links added.
[2019-09-30 11:30] VITALS: BP 100/70
[2019-09-30] MEDS ORDERED: MORPHINE SULFATE 2 MG/ML 1ML SYG IVP PRN ×3 (14:30)
[2019-09-30] MEDS ORDERED: BISACODYL 10 MG SUPP.RECT RC PRN (14:30)
[2019-09-30] MEDS ORDERED: ACETAMINOPHEN 650 MG SUPPOSITORY RC PRN (14:30)
[2019-09-30] MEDS ORDERED: MORPHINE-NS 50 MG/50 ML 50 ML IV SCH (14:45)
[2019-10-01 00:01] VITALS: BP 109/45
[2019-10-01] MEDS ORDERED: SODIUM CHLORIDE 0.9% 250 ML IV ONE (15:21)
[2019-10-01] MEDS: LORAZEPAM 2 MG/ML 1 ML VIAL IVP PRN (15:30)
[2019-10-02] VITALS: BP 49/32
[2019-10-02] MEDS: LORAZEPAM 2 MG/ML 1 ML VIAL IVP PRN ×2 (00:16→10:29)
[2019-10-02] MEDS ORDERED: SODIUM CHLORIDE 0.9% 250 ML IV ONE (10:26)
--- NOTE | 2019-10-02 17:35 | NUR ---
PRONOUNCEMENT CALLED TO ROOM, FAMILY AT BEDSIDE, PT IS DNR ON HOSPICE. PT IS UNRESPONSIVE, NO HEART TONES, PUPILS FIXED AND NONE REACTIVE. PT PRONOUNCED AT THIS TIME, PRIMARY NURSE AND CHARGE NURSE PRESENT.
--- NOTE | 2019-10-02 17:35 | NUR ---
Rec'd notice from primary nurse Mony that pt has . Pt assessed; no respirations, no carotid or radial pulses. No breath sounds or heartbeat upon auscultation. Bilateral pupils pinpoint and fixed. No signs of life. Sister present, stated she will notify rest of family. House sup, Venita notified. Primary nurse notified hospice nurse and Dr Mancia.
--- NOTE | 2019-10-02 18:15 | NUR ---
EVENT SALES REPRESENTATIVE PRONOUNCED PATIENT AT 1725. FAMILY PRESENT IN ROOM. CHARGE NURSE AWA RN, DR. FISHER AND HOSPICE NURSE ( OLU ) MADE AWARE OF PATIENT EXPIRING. PATIENT TO BE TRANSFERRED TO [facility] IN [facility]. SECURITY CALLED FOR POST MORTEM KIT. KIT PENDING TO BE DELIVERED TO FLOOR AT THIS TIME.
--- NOTE | 2019-10-02 20:50 | NUR ---
SECURITY HERE TO TRANSFER BODY TO [facility]. SON AND DAUGHTER AT BEDSIDE, ALL QUESTIONS ANSWERED.
== END 2019-10-02 21:00 | disposition expired | DRG 871 ==
LOC: 3AH 10:11
PROVIDERS: ADMIT Internal Medicine Hematology & Oncology; ATTEND Internal Medicine Hematology & Oncology
DX: A41.9 Sepsis, unspecified organism (principal); G82.50 Quadriplegia, unspecified; Z94.4 Liver transplant status; N39.0 Urinary tract infection, site not specified; R65.20 Severe sepsis without septic shock; K21.9 Gastro-esophageal reflux disease without esophagitis; G20 Parkinson's disease; M81.0 Age-related osteoporosis without current pathological fracture; K74.60 Unspecified cirrhosis of liver; L89.159 Pressure ulcer of sacral region, unspecified stage; R13.10 Dysphagia, unspecified; Z74.01 Bed confinement status; Z87.440 Personal history of urinary (tract) infections
CPT/HCPCS: G0378; J2060; J2270; J7050